=== PATIENT | female | born 1945 | race Hispanic/Latino ===

== ENCOUNTER 2018-01-15 07:12 | Emergency (ER) | payer MEDICARE ==
[2018-01-15] MEDS ORDERED: CODEINE 30MG/APAP 300MG TAB ONE (08:19)
--- NOTE | 2018-01-15 09:20 | EDPHYS ---
Physician Documentation [facility] Name: Patricia Caldera Age: 72 yrs Sex: Female : 1945 Arrival Date: 01/15/2018 Time: 07:19 Bed 12 Private MD: ED Physician Jason Silva HPI: 01/15 08:00 This 72 yrs old Female presents to ER via Ambulatory with complaints of Knee pm1 Pain. 08:00 The patient presents with pain, that is acute. The complaints affect the lateral aspect pm1 of left knee. Context: The problem was sustained at home, resulted from Son got dizzy with standing up and accidentally fell into his mother left knee, the patient can partially bear weight, the patient is able to ambulate, Problem is a result from a previous injury: No. Onset: The symptoms/episode began/occurred last night. Modifying factors: The symptoms are alleviated by remaining still, the symptoms are aggravated by weight bearing. Associated signs and symptoms: Pertinent negatives calf tenderness, fever, numbness, swelling, tingling, warmth. Treatment prior to arrival includes: no previous treatment. Severity of symptoms: in the emergency department the symptoms are unchanged. The patient has not experienced similar symptoms in the past. Patient with full range of motion of left knee without pain. Historical: - Allergies: 07:30 No Known Allergies; hb - Home Meds: 07:30 None [Active]; hb - PMHx: 07:30 Unable to obtain; hb - PSHx: 07:30 Hysterectomy; Bladder Sling; hb - Immunization history:: Adult Immunizations up to date. - Social history:: Smoking status: Patient/guardian denies using tobacco. - Ebola Screening: : No symptoms or risks identified at this time. ROS: 08:00 Constitutional: Negative for fever, chills, and weight loss, Eyes: Negative for injury, pm1 pain, redness, and discharge, ENT: Negative for injury, pain, and discharge, Neck: Negative for injury, pain, and swelling, Cardiovascular: Negative for chest pain, palpitations, and edema, Respiratory: Negative for shortness of breath, cough, wheezing, and pleuritic chest pain, Abdomen/GI: Negative for abdominal pain, nausea, vomiting, diarrhea, and constipation, Back: Negative for injury and pain. 08:00 Skin: Negative for injury, rash, and discoloration, Neuro: Negative for headache, weakness, numbness, tingling, and seizure. 08:00 MS/extremity: Positive for pain, of the lateral aspect of left knee, Negative for decreased range of motion, deformity, swelling. Exam: 08:00 Constitutional: This is a well developed, well nourished patient who is awake, alert, pm1 and in no acute distress. Head/Face: Normocephalic, atraumatic. Eyes: Pupils equal round and reactive to light, extra-ocular motions intact. Lids and lashes normal. Conjunctiva and sclera are non-icteric and not injected. Cornea within normal limits. Periorbital areas with no swelling, redness, or edema. ENT: Nares patent. No nasal discharge, no septal abnormalities noted. Tympanic membranes are normal and external auditory canals are clear. Oropharynx with no redness, swelling, or masses, exudates, or evidence of obstruction, uvula midline. Mucous membranes moist. Neck: Trachea midline, no thyromegaly or masses palpated, and no cervical lymphadenopathy. Supple, full range of motion without nuchal rigidity, or vertebral point tenderness. No Meningismus. Chest/axilla: Normal chest wall appearance and motion. Nontender with no deformity. No lesions are appreciated. Cardiovascular: Regular rate and rhythm with a normal S1 and S2. No gallops, murmurs, or rubs. Normal PMI, no JVD. No pulse deficits. Respiratory: Lungs have equal breath sounds bilaterally, clear to auscultation and percussion. No rales, rhonchi or wheezes noted. No increased work of breathing, no retractions or nasal flaring. Abdomen/GI: Soft, non-tender, with normal bowel sounds. No distension or tympany. No guarding or rebound. No evidence of tenderness throughout. Back: No spinal tenderness. No costovertebral tenderness. Full range of motion. Skin: Warm, dry with normal turgor. Normal color with no rashes, no lesions, and no evidence of cellulitis. 08:00 Musculoskeletal/extremity: Extremities: all appear grossly normal, with no appreciated pain with palpation, Left knee negative drawer test, Bhupendra, Apley compression test, valgus and varus stress, ROM: full active range of motion, in the left knee, full passive range of motion, in the left knee. 08:00 Neuro: Orientation: is normal, Motor: is normal, moves all fours, Sensation: is normal, no obvious gross deficits. Vital Signs: 07:31 BP 137 / 78; Pulse 69; Resp 16; Temp 98.1; Pulse Ox 100% on R/A; Pain 8/10; hb MDM: 07:30 Patient medically screened. pm1 09:18 Data reviewed: vital signs. Data interpreted: Pulse oximetry: on room air is 100 %. pm1 Interpretation: normal. Counseling: I had a detailed discussion with the patient and/or guardian regarding: the historical points, exam findings, and any diagnostic results supporting the discharge/admit diagnosis, radiology results, the need for outpatient follow up, for definitive care, a orthopedic surgeon, to return to the emergency department if symptoms worsen or persist or if there are any questions or concerns that arise at home. 01/15 07:32 Order name: Knee Left 3 View XRAY; Complete Time: 09:42 pm1 01/15 09:24 Order name: Jerald wrap-joint; Complete Time: 09:41 pm1 Administered Medications: 08:21 Drug: Tylenol #3 (300 mg-30 mg) 1 tablet Route: PO; hb Disposition: 10:27 Co-signature as Attending Physician, Jason Silva MD. rn Disposition: 01/15/18 09:19 Discharged to Home. Impression: Pain in left knee. - Condition is Stable. - Discharge Instructions: Elastic Bandage and RICE, Knee Pain. - Prescriptions for Tylenol- Codeine #3 300-30 mg Oral Tablet - take 1 tablet by ORAL route every 8 hours As needed; 20 tablet. - Medication Reconciliation Form, Thank You Letter, Prescription Opioid Use form. - Follow up: Emergency Department; When: As needed; Reason: Worsening of condition. Follow up: Augustin Woodall MD; When: 2 - 3 days; Reason: Recheck today's complaints, Continuance of care, Re-evaluation by your physician. - Problem is new. - Symptoms have improved. Signatures: Dispatcher [employer] EDMS Jason Silva MD MD rn Marinas, Patrick, KAREN [employer] PREPARATION WORKER pm1 Quyen Meredith, RN RN hb Corrections: (The following items were deleted from the chart) 09:45 09:19 01/15/2018 09:19 Discharged to Home. Impression: Pain in left knee. Condition is hb Stable. Forms are Medication Reconciliation Form, Thank You Letter, Antibiotic Education, Prescription Opioid Use. Follow up: Emergency Department; When: As needed; Reason: Worsening of condition. Follow up: Dr. Augustin Woodall; When: 2 - 3 days; Reason: Recheck today's complaints, Continuance of care, Re-evaluation by your physician. Problem is new. Symptoms have improved. pm1
--- NOTE | 2018-01-15 09:20 | ER ---
Nurse's Notes [facility] Name: Patricia Caldera Age: 72 yrs Sex: Female : 1945 Arrival Date: 01/15/2018 Time: 07:19 Bed 12 Private MD: Diagnosis: Pain in left knee Presentation: 01/15 07:29 Presenting complaint: Left knee pain 8/10 after mechanical fall from standing last hb night. Transition of care: patient was not received from another setting of care. Onset of symptoms was January 14, 2018. Risk Assessment: Do you want to hurt yourself or someone else? Patient reports no desire to harm self or others. Care prior to arrival: None. 07:29 Method Of Arrival: Ambulatory hb 07:29 Acuity: JONATHAN 4 hb 07:45 Initial Sepsis Screen: Does the patient meet any 2 criteria? No. Patient's initial hb sepsis screen is negative. Does the patient have a suspected source of infection? No. Patient's initial sepsis screen is negative. Historical: - Allergies: 07:30 No Known Allergies; hb - Home Meds: 07:30 None [Active]; hb - PMHx: 07:30 Unable to obtain; hb - PSHx: 07:30 Hysterectomy; Bladder Sling; hb - Immunization history:: Adult Immunizations up to date. - Social history:: Smoking status: Patient/guardian denies using tobacco. - Ebola Screening: : No symptoms or risks identified at this time. Screenin:00 Abuse screen: Denies threats or abuse. Denies injuries from another. Nutritional hb screening: No deficits noted. Tuberculosis screening: No symptoms or risk factors identified. Fall Risk None identified. Assessment: 08:00 General: Appears in no apparent distress. uncomfortable, Behavior is calm, cooperative. hb Pain: Pain currently is 8 out of 10 on a pain scale. Neuro: Level of Consciousness is awake, alert, obeys commands, Oriented to person, place, time, situation. Cardiovascular: Capillary refill < 3 seconds Patient's skin is warm and dry. Respiratory: Airway is patent Trachea midline Respiratory effort is even, unlabored, Respiratory pattern is regular, symmetrical. GI: No signs and/or symptoms were reported involving the gastrointestinal system. : No signs and/or symptoms were reported regarding the genitourinary system. EENT: No signs and/or symptoms were reported regarding the EENT system. Derm: Skin is pink, warm \T\ dry. Musculoskeletal: Reports pain in left knee. 09:00 Reassessment: Patient appears in no apparent distress at this time. No changes from hb previously documented assessment. Patient and/or family updated on plan of care and expected duration. Pain level reassessed. Patient is alert, oriented x 3, equal unlabored respirations, skin warm/dry/pink. Vital Signs: 07:31 BP 137 / 78; Pulse 69; Resp 16; Temp 98.1; Pulse Ox 100% on R/A; Pain 8/10; hb ED Course: 07:19 Patient arrived in ED. as 07:28 Quyen Meredith, RN is Primary Nurse. hb 07:30 Triage completed. hb 07:30 Edu Zacarias NP is PHCP. pm1 07:30 Jason Silva MD is Attending Physician. pm1 07:30 Arm band placed on right wrist. hb 08:00 Patient has correct armband on for positive identification. Bed in low position. Call hb light in reach. Side rails up X 1. 08:48 Knee Left 3 View XRAY In Process Unspecified. EDMS 09:18 Augustin Woodall MD is Referral Physician. pm1 09:30 No provider procedures requiring assistance completed. Patient did not have IV access hb during this emergency room visit. Administered Medications: 08:21 Drug: Tylenol #3 (300 mg-30 mg) 1 tablet Route: PO; hb Outcome: 09:19 Discharge ordered by . pm1 09:40 Discharged to home ambulatory, with significant other. hb 09:40 Condition: stable 09:40 Discharge instructions given to patient, Instructed on discharge instructions, follow up and referral plans. medication usage, Demonstrated understanding of instructions, follow-up care, medications, Prescriptions given X 1. 09:45 Patient left the ED. hb Signatures: Dispatcher [employer] EDMS Makeda Bautista as Edu Zacarias NP [employer]FFL[employer] REPAIRER pm1 Quyen Meredith, RN RN hb
--- NOTE | 2018-01-15 09:39 | RAD REPORT ---
EXAM DESCRIPTION: RAD - Knee Left 3 View - 01/15/2018 8:48 am CLINICAL HISTORY: Left knee pain status post injury FINDINGS: No fracture or dislocation is seen. Bones appear osteoporotic
[2018-01-15 09:52] VITALS: BP 137/78; TEMP 98.1; O2SAT 100
== END 2018-01-15 09:45 | disposition home or self-care (01) ==
LOC: ER 07:12
DX: M25.562 Pain in left knee (principal); W03.XXXA Other fall on same level due to collision with another person, initial encounter; Y93.9 Activity, unspecified; Y92.019 Unspecified place in single-family (private) house as the place of occurrence of the external cause
CPT/HCPCS: 99283

== ENCOUNTER 2018-08-04 10:16 | Emergency (ER) | payer OTHER ==
--- OUTSIDE RECORDS SUMMARY | 2018-08-04 10:21 | XMS REPORT | Summary of Care ---
:1945 Author Organization [facility] Outpatient Imaging [place] Address [facility] [place], [place] [address]- Encounter HQ Encntr_alias(FIN) [id number] Date(s): 01/28/17 - 01/28/17 [facility] Outpatient Imaging [address], [address] [place] [address]- [phone] Discharge Disposition: Home or Self Care Attending Physician: Delicia Stark MD Vital Signs No data available for this section Problem List No data available for this section Allergies, Adverse Reactions, Alerts Substance Reaction Severity Status NKDA Active Medications No data available for this section Results No data available for this section Immunizations No data available for this section Procedures Procedure Date Related Diagnosis Body Site Repair of cystocele and rectocele Total hysterectomy Social History Social History Type Response Alcohol Never Smoking Status Never smoker; Exposure to Tobacco Smoke None; Cigarette Smoking Last 365 Days No; Reg Smoking Cessation Counseling No Assessment and Plan No data available for this section
--- OUTSIDE RECORDS SUMMARY | 2018-08-04 10:21 | XMS REPORT | Continuity of Care Document ---
:1945 Author Organization Interface Problems Problem Status Onset Date Classification Date Comments Source Reported Medications Medication Details Route Status Patient Ordering Order Source Instructions Provider Date Allergies, Adverse Reactions, Alerts Substance Category Reaction Severity Reaction Status Date Comments Source type Reported Immunizations Immunization Date Given Site Status Last Updated Comments Source Results Order Results Value Reference Date Interpretation Comments Source Name Range Vital Signs Vital Sign Value Date Comments Source Encounters Location Location Encounter Encounter Reason Attending ADM DC Status Source Details Type Number For Provider Date Date Visit [facility] Outpt Diag [id number] Delicia 01/28 01/29 [facility] [place] /[facility] [id number] Jaqaun 07/[address] [facility] /2018 [facility] Procedures Procedure Code Date Perfomer Comments Source Repair of [id number] [place]IR[place] cystocele and [place] rectocele Total hysterectomy [id number] [facility] [place]
--- NOTE | 2018-08-04 13:21 | ER ---
Nurse's Notes [facility] Name: Patricia Caldera Age: 72 yrs Sex: Female : 1945 Arrival Date: 08/04/2018 Time: 10:17 Bed Waiting Private MD: Diagnosis: Presentation: 08/04 10:24 Presenting complaint: Patient states: "My right hip hurts so bad I can't walk it aj1 started all of the sudden" Reports that the pain started this morning and radiates down her leg. Patient denies injury to right hip or right leg. Transition of care: patient was not received from another setting of care. Onset of symptoms was August 04, 2018 at 07:00. Risk Assessment: Do you want to hurt yourself or someone else? Patient reports no desire to harm self or others. Initial Sepsis Screen: Does the patient meet any 2 criteria? No. Patient's initial sepsis screen is negative. Does the patient have a suspected source of infection? No. Patient's initial sepsis screen is negative. Care prior to arrival: None. 10:24 Method Of Arrival: Wheelchair aj1 10:24 Acuity: JONATHAN 4 aj1 Triage Assessment: 10:25 General: Appears in no apparent distress. uncomfortable, Behavior is calm, cooperative, aj1 appropriate for age. Pain: Complains of pain in right hip Pain radiates to right leg Pain currently is 10 out of 10 on a pain scale. Neuro: Level of Consciousness is awake, alert, obeys commands. Cardiovascular: Patient's skin is warm and dry. Respiratory: Airway is patent Respiratory effort is even, unlabored, Respiratory pattern is regular, symmetrical. Historical: - Allergies: 10:25 No Known Allergies; aj1 - Home Meds: 10:25 None [Active]; aj1 - PMHx: 10:25 None; aj1 - PSHx: 10:25 Carpal Tunnel Repair; aj1 - Immunization history:: Flu vaccine is not up to date. - Social history:: Smoking status: Patient/guardian denies using tobacco. - Ebola Screening: : Patient denies travel to an Ebola-affected area in the 21 days before illness onset. Assessment: 13:18 Reassessment: ER registration personnel states that patient left due to wait time. Vital Signs: 10:25 BP 145 / 81; Pulse 72; Resp 18; Temp 97.6(TE); Pulse Ox 99% on R/A; Weight 64.41 kg; aj1 Height 5 ft. 2 in. (157.48 cm) (R); Pain 10/10; 10:25 Body Mass Index 25.97 (64.41 kg, 157.48 cm) aj1 ED Course: 10:17 Patient arrived in ED. as 10:25 Triage completed. aj1 10:25 Arm band placed on Patient placed in waiting room, Patient notified of wait time. aj1 12:47 Patient's name was called from ER lobby. No response. aj1 13:19 No provider procedures requiring assistance completed. Patient did not have IV access ss during this emergency room visit. Administered Medications: No medications were administered Outcome: 13:19 Eloped from waiting room. ss 13:19 unknown 13:20 Patient left the ED. ss Signatures: Celia Fam, RN RN aj1 Makeda Bautista Shelby, RN RN ss
[2018-08-04 13:48] VITALS: BP 145/81; TEMP 97.6; O2SAT 99
== END 2018-08-04 13:20 | disposition left against medical advice (07) ==
LOC: ER 10:16
DX: M25.551 Pain in right hip (principal); Z53.21 Procedure and treatment not carried out due to patient leaving prior to being seen by health care provider
CPT/HCPCS: 99281

== ENCOUNTER 2018-08-13 06:49 | Emergency (ER) | payer OTHER ==
--- OUTSIDE RECORDS SUMMARY | 2018-08-13 06:51 | XMS REPORT | Continuity of Care Document ---
:1945 Author Organization Interface Problems Problem Status Onset Date Classification Date Comments Source Reported Medications Medication Details Route Status Patient Ordering Order Source Instructions Provider Date Allergies, Adverse Reactions, Alerts Substance Category Reaction Severity Reaction Status Date Comments Source type Reported No Known Assertion Drug Mischer Medication allergy Neuro Allergies Immunizations Immunization Date Given Site Status Last Updated Comments Source Results Order Results Value Reference Date Interpretation Comments Source Name Range Vital Signs Vital Sign Value Date Comments Source Encounters Location Location Encounter Encounter Reason Attending ADM DC Status Source Details Type Number For Provider Date Date Visit [facility] Outpt Diag [id number] Delicia 01/28 01/29 [facility] [place] [facility] [id number] [facility]qu[facility] 07[id number] [place] Records Procedures Procedure Code Date Perfomer Comments Source Repair of [id number] [facility] cystocele and [place] rectocele Total hysterectomy [id number] [facility] [place]air [place] [id number] [facility] [place]sto[place] and rectocele Total hysterectomy [id number] [facility]
[2018-08-13] MEDS ORDERED: HYDROCODONE/APAP 5/325 MG TAB ONE (07:49)
--- NOTE | 2018-08-13 07:49 | EDPHYS ---
Physician Documentation [facility] Name: Patricia Caldera Age: 72 yrs Sex: Female : 1945 Arrival Date: 08/13/2018 Time: 06:52 Bed 13 Private MD: ED Physician Vu Domingo HPI: 08/13 07:44 This 72 yrs old Female presents to ER via Wheelchair with complaints of Pain kb from hip down. 07:44 The patient presents with pain that is acute, with no known mechanism of injury. The kb symptoms are located in the right low back. Onset: The symptoms/episode began/occurred 10 day(s) ago. The pain radiates to the right leg. Associated signs and symptoms: The patient has no apparent associated signs or symptoms. The problem was sustained without known cause. Modifying factors: The patient symptoms are alleviated by nothing, the patient symptoms are aggravated by any movement. Severity of symptoms: At their worst the symptoms were moderate, in the emergency department the symptoms are unchanged. The patient has not experienced similar symptoms in the past. Pt reports she started having pain to right buttock/hip that radiates down right leg 10 days ago. Was seen by Dr Martin, given tramadol and trizanadine, and had a hip x-ray done. States the medications aren't working.. Historical: - Allergies: 07:07 No Known Allergies; rb1 - Home Meds: 07:07 tramadol 50 mg Oral tab 1 tab Twice a day [Active]; tizanidine 4 mg oral cap 1 cap rb1 Twice a day [Active]; - PMHx: 07:07 None; rb1 - PSHx: 07:07 Carpal Tunnel Repair; rb1 - Immunization history:: Adult Immunizations up to date. - Social history:: Smoking status: Patient/guardian denies using tobacco. - Ebola Screening: : Patient negative for fever greater than or equal to 101.5 degrees Fahrenheit, and additional compatible Ebola Virus Disease symptoms. ROS: 07:41 Constitutional: Negative for fever, chills, and weight loss, Cardiovascular: Negative kb for chest pain, palpitations, and edema, Respiratory: Negative for shortness of breath, cough, wheezing, and pleuritic chest pain, Abdomen/GI: Negative for abdominal pain, nausea, vomiting, diarrhea, and constipation, MS/Extremity: Negative for injury and deformity, Skin: Negative for injury, rash, and discoloration, Neuro: Negative for headache, weakness, numbness, tingling, and seizure. 07:41 Back: Positive for pain at rest, pain with movement, radiated pain, of the right low back, Negative for injury or acute deformity, acute changes. Exam: 07:41 Constitutional: This is a well developed, well nourished patient who is awake, alert, kb and in no acute distress. Head/Face: Normocephalic, atraumatic. Chest/axilla: Normal chest wall appearance and motion. Nontender with no deformity. No lesions are appreciated. Cardiovascular: Regular rate and rhythm with a normal S1 and S2. No gallops, murmurs, or rubs. Normal PMI, no JVD. No pulse deficits. Respiratory: Lungs have equal breath sounds bilaterally, clear to auscultation and percussion. No rales, rhonchi or wheezes noted. No increased work of breathing, no retractions or nasal flaring. Abdomen/GI: Soft, non-tender, with normal bowel sounds. No distension or tympany. No guarding or rebound. No evidence of tenderness throughout. Skin: Warm, dry with normal turgor. Normal color with no rashes, no lesions, and no evidence of cellulitis. Neuro: Awake and alert, GCS 15, oriented to person, place, time, and situation. Cranial nerves II-XII grossly intact. Motor strength 5/5 in all extremities. Sensory grossly intact. Cerebellar exam normal. Normal gait. 07:41 Back: pain, that is moderate, of the right low back, ROM is normal, normal spinal alignment noted. Vital Signs: 07:07 BP 151 / 76; Pulse 95; Resp 17; Temp 97.8(O); Pulse Ox 98% on R/A; Weight 64.41 kg (R); rb1 Height 5 ft. 2 in. (157.48 cm) (R); Pain 9/10; 08:05 BP 145 / 82; Pulse 86; Resp 17; Temp 98.2(O); Pulse Ox 97% on R/A; Pain 8/10; rb1 07:07 Body Mass Index 25.97 (64.41 kg, 157.48 cm) rb1 MDM: 07:10 Patient medically screened. kb 07:41 Data reviewed: vital signs, nurses notes. Data reviewed: radiologic studies, plain kb films, plain films of hip done last week reviewed. Normal findings. Data interpreted: Pulse oximetry: on room air is 98 %. Interpretation: normal. Counseling: I had a detailed discussion with the patient and/or guardian regarding: the historical points, exam findings, and any diagnostic results supporting the discharge/admit diagnosis, the need for outpatient follow up, a family practitioner, to return to the emergency department if symptoms worsen or persist or if there are any questions or concerns that arise at home. Administered Medications: 07:38 Drug: [place] 5 mg-325 mg 1 tabs Route: PO; rb1 08:05 Follow up: Response: No adverse reaction; Pain is decreased; pain 11/19 rb1 Disposition: 22:02 Co-signature as Attending Physician, Vu Domingo MD Available for consultation at ps1 all times. . Disposition: 08/13/18 07:48 Discharged to Home. Impression: Sciatica, right side. - Condition is Stable. - Discharge Instructions: Sciatica, [id number], Back Exercises, [id number]. - Prescriptions for Neurontin 300 mg Oral Capsule - take 1 capsule by ORAL route 1-2 times daily As needed; 20 capsule. Prednisone 20 mg Oral Tablet - take 1 tablet by ORAL route once daily for 5 days; 5 tablet. - Medication Reconciliation Form, Thank You Letter, Antibiotic Education, Prescription Opioid Use form. - Follow up: Emergency Department; When: As needed; Reason: Worsening of condition. Follow up: Private Physician; When: 2 - 3 days; Reason: Recheck today's complaints, Continuance of care, Re-evaluation by your physician. Signatures: Mildred Lay, KJ-C SOCIOCULTURAL ANTHROPOLOGY PROFESSOR-Kylie Meraz, RN RN rb1 Vu Domingo MD MD ps1 Corrections: (The following items were deleted from the chart) 08:09 07:48 08/13/2018 07:48 Discharged to Home. Impression: Sciatica, right side. Condition rb1 is Stable. Discharge Instructions: Sciatica, [id number], Back Exercises, [id number]. Prescriptions for Neurontin 300 mg Oral Capsule - take 1 capsule by ORAL route 1-2 times daily As needed; 20 capsule, Prednisone 20 mg Oral Tablet - take 1 tablet by ORAL route once daily for 5 days; 5 tablet. and Forms are Medication Reconciliation Form, Thank You Letter, Antibiotic Education, Prescription Opioid Use. Follow up: Emergency Department; When: As needed; Reason: Worsening of condition. Follow up: Private Physician; When: 2 - 3 days; Reason: Recheck today's complaints, Continuance of care, Re-evaluation by your physician. kb
--- NOTE | 2018-08-13 07:49 | ER ---
Nurse's Notes [facility] Name: Patricia Caldera Age: 72 yrs Sex: Female : 1945 Arrival Date: 08/13/2018 Time: 06:52 Bed 13 Private MD: Diagnosis: Sciatica, right side Presentation: 08/13 07:07 Presenting complaint: Patient states: C/o right hip pain x [address] Martin rb1 for pain. Had X-rays on Wednesday but has not received results yet. 07:07 Transition of care: patient was not received from another setting of care. Onset of rb1 symptoms is unknown. Risk Assessment: Do you want to hurt yourself or someone else? Patient reports no desire to harm self or others. Initial Sepsis Screen: Does the patient meet any 2 criteria? No. Patient's initial sepsis screen is negative. Does the patient have a suspected source of infection? No. Patient's initial sepsis screen is negative. Care prior to arrival: Medication(s) given: Tramadol 50 mg PO and Tizanidine 4 mg PO. 07:07 Method Of Arrival: [facility] 07:07 Acuity: JONATHAN 3 rb1 Triage Assessment: 07:07 General: Appears uncomfortable, Behavior is calm, cooperative. Pain: Complains of pain rb1 in right hip Pain currently is 9 out of 10 on a pain scale. Pain began x 2 weeks. Neuro: Level of Consciousness is awake, alert, obeys commands, Oriented to person, place, time, situation. Cardiovascular: Capillary refill < 3 seconds is brisk in bilateral fingers. Respiratory: Airway is patent Respiratory effort is even, unlabored, Respiratory pattern is regular, symmetrical. GI: Reports diarrhea. : No signs and/or symptoms were reported regarding the genitourinary system. Derm: Skin is dry, Skin is normal, Skin temperature is warm. Musculoskeletal: Range of motion: intact in all extremities. Historical: - Allergies: 07:07 No Known Allergies; rb1 - Home Meds: 07:07 tramadol 50 mg Oral tab 1 tab Twice a day [Active]; tizanidine 4 mg oral cap 1 cap rb1 Twice a day [Active]; - PMHx: 07:07 None; rb1 - PSHx: 07:07 Carpal Tunnel Repair; rb1 - Immunization history:: Adult Immunizations up to date. - Social history:: Smoking status: Patient/guardian denies using tobacco. - Ebola Screening: : Patient negative for fever greater than or equal to 101.5 degrees Fahrenheit, and additional compatible Ebola Virus Disease symptoms. Screenin:07 Abuse screen: Denies threats or abuse. Nutritional screening: No deficits noted. rb1 Tuberculosis screening: No symptoms or risk factors identified. Fall Risk None identified. Assessment: 07:07 General: See triage assessment. rb1 08:05 Reassessment: Patient appears in no apparent distress at this time. Patient and/or rb1 family updated on plan of care and expected duration. Pain level reassessed. Patient is alert, oriented x 3, equal unlabored respirations, skin warm/dry/pink. Vital Signs: 07:07 BP 151 / 76; Pulse 95; Resp 17; Temp 97.8(O); Pulse Ox 98% on R/A; Weight 64.41 kg (R); rb1 Height 5 ft. 2 in. (157.48 cm) (R); Pain 9/10; 08:05 BP 145 / 82; Pulse 86; Resp 17; Temp 98.2(O); Pulse Ox 97% on R/A; Pain 8/10; rb1 07:07 Body Mass Index 25.97 (64.41 kg, 157.48 cm) rb1 ED Course: 06:52 Patient arrived in ED. es 07:07 Patient has correct armband on for positive identification. Bed in low position. Call rb1 light in reach. Side rails up X 1. Pulse ox on. NIBP on. Warm blanket given. 07:07 Arm band placed on right wrist. rb1 07:09 Mildred Lay FNP-C is PHCP. kb 07:10 Vu Domingo MD is Attending Physician. kb 07:14 Kylie Kelley, RN is Primary Nurse. rb1 07:24 Triage completed. rb1 08:09 No provider procedures requiring assistance completed. Patient did not have IV access rb1 during this emergency room visit. Administered Medications: 07:38 Drug: [place] 5 mg-325 mg 1 tabs Route: PO; rb1 08:05 Follow up: Response: No adverse reaction; Pain is decreased; pain 8/10 rb1 Intake: Outcome: 07:48 Discharge ordered by . kb 08:09 Patient left the ED. rb1 08:09 Discharged to home via wheelchair. rb1 08: Condition: stable 08:09 Discharge instructions given to patient, Instructed on discharge instructions, follow up and referral plans. medication usage, Demonstrated understanding of instructions, follow-up care, medications, Prescriptions given X 2. Signatures: Mildred Lay, PUBLIC SPEAKER-C PUBLIC SPEAKER-Rocío Saba Rebecca, RN RN rb1
[2018-08-13 08:35] VITALS: BP 151/76; TEMP 97.8; O2SAT 98
== END 2018-08-13 08:09 | disposition home or self-care (01) ==
LOC: ER 06:49
DX: M54.31 Sciatica, right side (principal)
CPT/HCPCS: 99283

== ENCOUNTER 2021-12-26 12:17 | Emergency (ER) | payer OTHER ==
[2021-12-26] MEDS ORDERED: ONDANSETRON 4 MG/2 ML VIAL ONE (13:43)
[2021-12-26] MEDS ORDERED: FAMOTIDINE 20 MG/2 ML VIAL IV ONE (13:43)
[2021-12-26] MEDS ORDERED: MORPHINE 2 MG/ML SYR ONE (13:43)
--- NOTE | 2021-12-26 13:53 | RAD REPORT ---
EXAM DESCRIPTION: US - Abdomen Exam Limited - 12/26/2021 1:45 pm CLINICAL HISTORY: EPIGASTRIC PAIN COMPARISON: Abdomen Exam Limited dated 02/10/2017 FINDINGS: The gallbladder demonstrates no clear evidence of gallstones. Small echogenic foci along t he nondependent portions of the gallbladder wall could represent adenomyomatosis, less likely polyps. No pericholecystic fluid or gallbladder wall thickening. The common bile duct is normal measuring 3 mm. The liver demonstrates no findings of intrahepatic biliary dilatation. IMPRESSION: No sonographic evidence of acute cholecystitis. Probable adenomyomatosis without clear e vidence of cholelithiasis. .
[2021-12-26 14:18] LABS: Albumin 3.5 g/dL (3.4-5.0); Bilirubin Total 0.6 mg/dL (0.2-1.0); Potassium 4.4 mmol/L (3.5-5.1); Protein, Total 7.3 g/dL (6.4-8.2)
[2021-12-26 14:20] LABS: Hematocrit 37.5 % (36.0-45.0); Lymphocytes % 34.7 % (15.3-44.8); MCV 99.8 fL (80-100); MPV 9.5 fL (7.6-11.3); RBC Red Blood Cell Count 3.76 M/uL (3.86-4.86)
--- NOTE | 2021-12-26 15:11 | RAD REPORT ---
EXAM DESCRIPTION: CTAbdomen Pelvis W Contrast - 12/26/2021 2:47 pm CLINICAL HISTORY: abdominal pain COMPARISON: CT ABD PELVIS W CONTRAST dated 10/10/2013 TECHNIQUE: CT of the abdomen and pelvis was performed. All CT scans are performed using dose optimization technique as appropriate and may include automated exposure control or mA/KV adjustment according to patient size. FINDINGS: Lower chest: No acute abnormality. Liver: No acute abnormality or suspicious lesions. Biliary: No biliary ductal dilatation. Stomach: No significant focal abnormality. Duodenum: No significant focal abnormality. Pancreas: No significant abnormality. Spleen: No significant abnormality. Adrenal: No suspicious lesions. Kidney/ureter: No hydronephrosis. Punctate stone in the left kidney. Retroperitoneum: No retroperitoneal adenopathy. Vascular: No aneurysm. Bowel: Formed stool in the distal small bowel suggests slow transit. No bowel obstruction is identifi ed. Scattered loops of fluid distended small bowel. No transition point.. No appendix identified. No secondary signs of acute appendicitis. Peritoneum: No ascites or free air. Bladder: Grossly unremarkable. Reproductive: No adnexal masses. Hysterectomy Bones: No acute fracture. Other: n/a IMPRESSION: No acute intra-abdominal or pelvic finding. Incidental findings as noted above.
[2021-12-26 15:25] LABS: Urine Blood Negative (Negative); Urine Glucose Negative (Negative); Urine Protein Negative (Negative); Urine Specific Gravity 1.015 (1.005-1.030); Urine pH 8.5 (5.0-7.0)
--- NOTE | 2021-12-26 16:04 | EDPHYS ---
Physician Documentation [facility] Name: Patricia Caldera Age: 76 yrs Sex: Female : 1945 Arrival Date: 12/26/2021 Time: 12:21 Bed 26 Private MD: Isabel Yeung ED Physician Kiel Bains HPI: 12/26 16:01 This 76 yrs old Female presents to ER via Ambulatory with complaints of jmm Abdominal Pain. 16:01 The patient presents with abdominal pain. Onset: The symptoms/episode began/occurred jmm gradually. The symptoms do not radiate. Associated signs and symptoms: Pertinent positives: nausea. The symptoms are described as achy, sharp. Modifying factors: The symptoms are alleviated by nothing, the symptoms are aggravated by nothing. It is unknown whether or not the patient has had similar symptoms in the past. Historical: - Allergies: 12:40 No Known Allergies; kr3 - Home Meds: 15:33 tizanidine 4 mg Oral cap 1 cap twice a day [Active]; tramadol 50 mg Oral tab 1 tab hb twice a day [Active]; - PMHx: 12:40 Diverticulitis; Acid reflux; kr3 - PSHx: 12:40 hysterectomy; Appendectomy; kr3 - Immunization history:: Adult Immunizations not up to date. - Social history:: Smoking status: Patient denies any tobacco usage or history of. ROS: 16:01 Constitutional: Negative for fever, chills, and weight loss, Cardiovascular: Negative jmm for chest pain, palpitations, and edema, Respiratory: Negative for shortness of breath, cough, wheezing, and pleuritic chest pain. 16:01 Abdomen/GI: Positive for abdominal pain. 16:01 All other systems are negative. Exam: 16:01 Constitutional: This is a well developed, well nourished patient who is awake, alert, jmm and in no acute distress. Head/Face: atraumatic. Eyes: EOMI, no conjunctival erythema appreciated ENT: Moist Mucus Membranes Neck: Trachea midline, Supple Chest/axilla: Normal chest wall appearance and motion. Cardiovascular: Regular rate and rhythm. No edema appreciated Respiratory: Normal respirations, no respiratory distress appreciated Back: Normal ROM 16:01 Skin: General appearance color normal MS/ Extremity: Moves all extremities, no obvious deformities appreciated, no edema noted to the lower extremities Neuro: Awake and alert Psych: Behavior is normal, Mood is normal, Patient is cooperative and pleasant 16:01 Abdomen/GI: Inspection: abdomen appears normal, Bowel sounds: normal, Palpation: soft, moderate abdominal tenderness, in the epigastric area. Vital Signs: 12:37 BP 124 / 81; Pulse 91; Resp 16; Temp 98.8; Pulse Ox 99% on R/A; Weight 68.04 kg; Height kr3 5 ft. 2 in. (157.48 cm); Pain 6/10; 14:30 BP 122 / 78; Pulse 84; Resp 16; Pulse Ox 99% ; Pain 2/10; hb 12:37 Body Mass Index 27.44 (68.04 kg, 157.48 cm) kr3 MDM: 13:07 Patient medically screened. [facility] 16:02 Data reviewed: vital signs, nurses notes. Counseling: I had a detailed discussion with [facility] the patient and/or guardian regarding: the historical points, exam findings, and any diagnostic results supporting the discharge/admit diagnosis, lab results, radiology results, the need for outpatient follow up, to return to the emergency department if symptoms worsen or persist or if there are any questions or concerns that arise at home. 12/26 13:10 Order name: CBC with Diff; Complete Time: 14:29 [facility] 12/26 13:10 Order name: CMP; Complete Time: 14:20 [facility] 12/26 13:10 Order name: Lipase; Complete Time: 14:20 [facility] 12/26 13:12 Order name: US Abdomen Limited; Complete Time: 13:54 [facility] 12/26 13:12 Order name: CT Abd/Pelvis - IV Contrast Only; Complete Time: 15:12 [facility] 12/26 15:25 Order name: Urine Dipstick-Ancillary; Complete Time: 15:37 [facility] 12/26 13:10 Order name: IV Saline Lock; Complete Time: 13:54 [facility] 12/26 13:10 Order name: Labs collected and sent; Complete Time: 13:54 [facility] 12/26 13:10 Order name: Urine Dipstick-Ancillary (obtain specimen); Complete Time: 15:30 [facility] Administered Medications: 13:54 Drug: Pepcid (famotidine) 20 mg Route: IVP; Site: right antecubital; hb 13:54 Drug: Zofran (Ondansetron) 4 mg Route: IVP; Site: right antecubital; hb 13:54 Drug: morphine 2 mg Route: IVP; Infused Over: 4 mins; Site: right antecubital; hb Disposition: 18:01 Co-signature as Attending Physician, Kiel Bains MD I agree with the assessment and kdr plan of care. Disposition Summary: 12/26/21 16:03 Discharge Ordered Location: Home [facility] Condition: Stable [facility] Diagnosis - Epigastric Abdominal Pain [facility] Followup: [facility] - With: Fredis Otero MD - When: 2 - 3 days - Reason: Recheck today's complaints, Continuance of care, Re-evaluation by your physician Discharge Instructions: - Discharge Summary Sheet [facility] - Abdominal Pain, Adult [facility] Forms: - Medication Reconciliation Form [facility] - Thank You Letter [facility] - Antibiotic Education [facility] - Prescription Opioid Use [facility] Prescriptions: - Pepcid 20 mg Oral Tablet - take 1 tablet by ORAL route every 12 hours for 10 days; 20 tablet; Refills: 0, [facility] Product Selection Permitted - dicyclomine 20 mg Oral Tablet - take 1 tablet by ORAL route 3 times per day; 30 tablet; Refills: 0, Product [facility] Selection Permitted Signatures: Dispatcher [employer] EDGA Kiel Bains MD MD kdr Mickail, Joel, PA PA Quyen Peterson, RN RN Marla Sewell RN RN kr3
--- NOTE | 2021-12-26 16:04 | ER ---
Nurse's Notes [facility] Name: Patricia Caldera Age: 76 yrs Sex: Female : 1945 Arrival Date: 12/26/2021 Time: 12:21 Bed 26 Private MD: Isabel Yeung Diagnosis: Epigastric Abdominal Pain Presentation: 12/26 12:37 Chief complaint: Patient states: Called Dr. Walsh this Am and was told to come here due kr3 to sharp pain in upper abdomen. Coronavirus screen: Vaccine status: Patient reports receiving the 2nd dose of the covid vaccine. Client denies travel out of the [place] in the last 14 days. Ebola Screen: Patient denies travel to an Ebola-affected area in the 21 days before illness onset. Initial Sepsis Screen: Does the patient meet any 2 criteria? No. Patient's initial sepsis screen is negative. Does the patient have a suspected source of infection? Yes: Acute abdominal pain. Risk Assessment: Do you want to hurt yourself or someone else? Patient reports no desire to harm self or others. Onset of symptoms was December 23, 2021. 12:37 Method Of Arrival: Ambulatory kr3 12:37 Acuity: JONATHAN 3 kr3 Triage Assessment: 12:43 General: Appears in no apparent distress. uncomfortable, Behavior is calm, cooperative, kr3 appropriate for age. Pain: Complains of pain in epigastric area. Historical: - Allergies: 12:40 No Known Allergies; kr3 - Home Meds: 15:33 tizanidine 4 mg Oral cap 1 cap twice a day [Active]; tramadol 50 mg Oral tab 1 tab hb twice a day [Active]; - PMHx: 12:40 Diverticulitis; Acid reflux; kr3 - PSHx: 12:40 hysterectomy; Appendectomy; kr3 - Immunization history:: Adult Immunizations not up to date. - Social history:: Smoking status: Patient denies any tobacco usage or history of. Screenin:30 Abuse screen: Denies threats or abuse. Denies injuries from another. Nutritional hb screening: No deficits noted. Tuberculosis screening: No symptoms or risk factors identified. Fall Risk None identified. Assessment: 13:00 General: Appears in no apparent distress. uncomfortable, Behavior is calm, cooperative. hb Pain: Pain currently is 6 out of 10 on a pain scale. Neuro: Level of Consciousness is awake, alert, obeys commands, Oriented to person, place, time, situation. Cardiovascular: Patient's skin is warm and dry. Respiratory: Respiratory effort is even, unlabored, Respiratory pattern is regular, symmetrical. GI: Reports upper abdominal pain, nausea. : No signs and/or symptoms were reported regarding the genitourinary system. EENT: No signs and/or symptoms were reported regarding the EENT system. Derm: Skin is pink, warm \T\ dry. Musculoskeletal: No signs and/or symptoms reported regarding the musculoskeletal system. 14:00 Reassessment: Patient appears in no apparent distress at this time. Patient and/or hb family updated on plan of care and expected duration. Pain level reassessed. Patient is alert, oriented x 3, equal unlabored respirations, skin warm/dry/pink. 15:00 Reassessment: Patient appears in no apparent distress at this time. Patient and/or hb family updated on plan of care and expected duration. Pain level reassessed. Patient is alert, oriented x 3, equal unlabored respirations, skin warm/dry/pink. Vital Signs: 12:37 BP 124 / 81; Pulse 91; Resp 16; Temp 98.8; Pulse Ox 99% on R/A; Weight 68.04 kg; Height kr3 5 ft. 2 in. (157.48 cm); Pain 6/10; 14:30 BP 122 / 78; Pulse 84; Resp 16; Pulse Ox 99% ; Pain 2/10; hb 12:37 Body Mass Index 27.44 (68.04 kg, 157.48 cm) kr3 ED Course: 12:21 Patient arrived in ED. mr 12:21 Isabel Yeung MD is Private Physician. mr 12:40 Triage completed. kr3 12:43 Arm band placed on right wrist. Patient placed in an exam room, on a stretcher. kr3 12:44 David Gonzalez PA is PHCP. m 12:44 Kiel Bains MD is Attending Physician. jmm 12:50 Quyen Meredith, CHARLES is Primary Nurse. hb 13:39 US Abdomen Limited In Process Unspecified. EDMS 13:54 Initial lab(s) drawn, by me, sent to lab. Inserted saline lock: 20 gauge in right jw7 antecubital area, using aseptic technique. Blood collected. 13:55 CBC with Diff Sent. jw7 13:55 CMP Sent. jw7 13:55 Lipase Sent. jw7 14:30 Patient has correct armband on for positive identification. hb 14:49 CT Abd/Pelvis - IV Contrast Only In Process Unspecified. EDMS 16:02 Fredis Otero MD is Referral Physician. [facility] Administered Medications: 13:54 Drug: Pepcid (famotidine) 20 mg Route: IVP; Site: right antecubital; hb 13:54 Drug: Zofran (Ondansetron) 4 mg Route: IVP; Site: right antecubital; hb 13:54 Drug: morphine 2 mg Route: IVP; Infused Over: 4 mins; Site: right antecubital; Medication: 14:30 VIS not applicable for this client. Outcome: 16:03 Discharge ordered by . [facility] 16:22 Patient left the ED. iw Signatures: Dispatcher [employer] EDMS David Gonzalez PA PA [facility] Naz Almeida Irene, RN Quyen Mc, CHARLES RN Mandy Minaya Kelley, CHARLES RN kr3
[2021-12-27 23:51] VITALS: BP 122/78; O2SAT 99
[2021-12-28 00:24] VITALS: TEMP 98.8
== END 2021-12-26 16:22 | disposition home or self-care (01) ==
LOC: ER 12:17
DX: R10.13 Epigastric pain (principal)
CPT/HCPCS: 85025; 36415; 81003; 83690; 80053; 74177; 76705; 96375; 96374; 99284; Q9967; J2270; J2405

== ENCOUNTER 2022-05-11 20:16 | Inpatient (IN) | payer MEDICARE, OTHER ==
--- NOTE | 2022-05-11 21:39 | RAD REPORT ---
EXAM DESCRIPTION: US - Extrem Venous W Compress Nolan - 05/11/2022 9:30 pm CLINICAL HISTORY: PAIN COMPARISON: none TECHNIQUE: Real-time sonographic evaluation of the lower extremity deep venous systems was performed using color Doppler, grayscale, and compression. FINDINGS: Bilateral lower extremities. Normal compressibility, flow augmentation, phasic flow and spontaneous flow is identified in both the left and right lower extremity deep venous systems. No intraluminal filling defects seen. IMPRESSION: No DVT in either lower extremity.
--- NOTE | 2022-05-11 21:54 | RAD REPORT ---
EXAM DESCRIPTION: RAD - Chest Single View - 05/11/2022 9:35 pm CLINICAL HISTORY: COUGH COMPARISON: Chest Pa And Lat (2 Views) dated 04/03/2019; Chest Pa And Lat (2 Views) dated 06/10/2016; CHEST SINGLE VIEW dated 11/20/2014; ABDOMEN 1 VIEW KUB dated 09/28/2013 FINDINGS: Lines: None. Lungs: No evidence of edema or pneumonia. Pleural: No significant pleural effusions or pneumothorax. Cardiac: Similar size and configuration. Mediastinum: Within normal limits. Bones: No acute fractures. Other: None IMPRESSION: No acute cardiopulmonary disease.
--- NOTE | 2022-05-11 22:57 | ER ---
Nurse's Notes [facility] Name: Patricia Caldera Age: 76 yrs Sex: Female : 1945 Arrival Date: 05/11/2022 Time: 20:20 Bed 26 Private MD: Diagnosis: Cellulitis and acute lymphangitis of other parts of limb-left lower extremity failed out pt Presentation: 05/11 20:27 Chief complaint: Patient states: left leg fracture 3 weeks ago; left page is swollen, jh5 red, with puss pocket to front of page. Pt states her leg was wrapped by ortho doctor; went across the street and told her she has infection and didn't give her anything for it apart so she called Dr. Mast and saw him on Wednesday; Pro gave her CEPHALEXIN 500MG TID and she says she has been taking it TID but not leg is getting worse. Coronavirus screen: Vaccine status: Patient reports receiving the 2nd dose of the covid vaccine. Client denies travel out of the [place] in the last 14 days. Ebola Screen: Patient negative for fever greater than or equal to 101.5 degrees Fahrenheit, and additional compatible Ebola Virus Disease symptoms Patient denies exposure to infectious person. Patient denies travel to an Ebola-affected area in the 21 days before illness onset. Initial Sepsis Screen: Does the patient meet any 2 criteria? No. Patient's initial sepsis screen is negative. Does the patient have a suspected source of infection? No. Patient's initial sepsis screen is negative. Risk Assessment: Do you want to hurt yourself or someone else? Patient reports no desire to harm self or others. 20:27 Method Of Arrival: Ambulatory [facility] 20:27 Acuity: JONATHAN 3 jh5 Triage Assessment: 20:31 General: Appears uncomfortable, slender, well groomed, well developed, Behavior is jh5 calm, cooperative, appropriate for age. Pain: Complains of pain in left leg. Historical: - PMHx: 20:31 acid reflux; Diverticulitis; jh5 - PSHx: 20:31 Appendectomy; hysterectomy; jh5 - Immunization history:: Adult Immunizations up to date. - Social history:: Smoking status: Patient denies any tobacco usage or history of. - Family history:: not pertinent. Screenin:21 [facility] ED Fall Risk Assessment (Adult) History of falling in the last 3 months, kl including since admission Yes- single mechanical fall (1 pt) Confusion or Disorientation No (0 pts) Intoxicated or Sedated No (0 pts) Impaired Gait Yes (1 pt) Mobility Assist Device Used No (0 pt) Altered Elimination No (0 pt) Score/Fall Risk Level 0 - 2 = Low Risk Oriented to surroundings, Maintained a safe environment. Abuse screen: Denies threats or abuse. Abuse screen: Denies threats or abuse. Nutritional screening: No deficits noted. Tuberculosis screening: No symptoms or risk factors identified. Assessment: 23:20 General: Appears uncomfortable, well groomed, well developed, Behavior is calm, kl cooperative. Pain: Complains of pain in left page. Neuro: No deficits noted. Cardiovascular: No deficits noted. Respiratory: No deficits noted. GI: No deficits noted. No signs and/or symptoms were reported involving the gastrointestinal system. : No deficits noted. No signs and/or symptoms were reported regarding the genitourinary system. EENT: No deficits noted. EENT: Derm: Skin is red, to left lower extremity Skin temperature is hot swelling noted. 05/12 01:00 Reassessment: Patient appears in no apparent distress at this time. Patient and/or jb4 family updated on plan of care and expected duration. Pain level reassessed. Patient is alert, oriented x 3, equal unlabored respirations, skin warm/dry/pink. Vital Signs: 05/11 20:27 BP 125 / 71; Pulse 80; Resp 18; Temp 98.2; Pulse Ox 100% ; Weight 69.85 kg; Height 5 jh5 ft. 2 in. (157.48 cm); Pain 10/10; 22:13 BP 137 / 69; Pulse 76; Resp 18; Temp 98.4; Pulse Ox 99% on R/A; Weight 69.85 kg; Height rv1 5 ft. 2 in. (157.48 cm); Pain 10/10; 23:23 BP 121 / 61; Pulse 78; Resp 17 S; Pulse Ox 98% on R/A; kl 05/12 01:00 BP 124 / 61; Pulse 81; Resp 16; Pulse Ox 94% on R/A; jb4 05/11 22:13 Body Mass Index 28.17 (69.85 kg, 157.48 cm) rv1 ED Course: 05/11 20:20 Patient arrived in ED. ja2 20:31 Triage completed. jh5 20:31 Arm band placed on right wrist. jh5 20:42 Ramakrishna Knight MD is Attending Physician. gurinder 21:32 US Extremity Venous W Compression Nolan In Process Unspecified. EDMS 21:37 XRAY Chest (1 view) In Process Unspecified. EDMS 22:55 Marcus Thompson is Hospitalizing Provider. gurinder 22:57 Tib Fib Left XRAY In Process Unspecified. EDMS 23:22 No provider procedures requiring assistance completed. Inserted saline lock: 20 gauge kl in left antecubital area, using aseptic technique. Blood collected. 23:22 Lactate w/ 2H reflex if indic. Sent. kl 23:22 Blood Culture Adult (2) Sent. kl 23:22 Basic Metabolic Panel Sent. kl 23:22 CBC with Diff Sent. kl 23:22 LFT's Sent. kl 23:23 Magnesium Sent. kl 23:23 NT PRO-BNP Sent. kl 23:23 PT-INR Sent. kl 23:23 Troponin HS Sent. kl 05/12 00:09 Lower Ext Wo Con W/ Mpr In Process Unspecified. EDMS Administered Medications: 00:14 Drug: NS 0.9% 1000 ml Route: IV; Rate: 1 bolus; Site: left antecubital; jb4 01:19 Follow up: Response: No adverse reaction; IV Status: Completed infusion; IV Intake: jb4 1000ml 00:14 Drug: Zosyn (piperacillin-tazobactam) 3.375 grams Route: IVPB; Infused Over: 60 mins; jb4 Site: left antecubital; 01:20 Follow up: Response: No adverse reaction; IV Status: Completed infusion; IV Intake: jb4 100ml 00:14 Drug: Pepcid (famotidine) 20 mg Route: IVP; Site: left antecubital; jb4 00:14 Drug: HYDROcodone-acetaminophen 5 mg-325 mg 1 tabs Route: PO; jb4 01:19 Follow up: Response: No adverse reaction; Marked relief of symptoms; Pain is decreased jb4 01:19 Drug: vancoMYCIN 1 grams Route: IVPB; Infused Over: 2 hrs; Site: left antecubital; jb4 Intake: 01:19 IV: 1000ml; Total: 1000ml. jb4 01:20 IV: 100ml; Total: 1100ml. jb4 Outcome: 05/11 22:57 Decision to Hospitalize by Provider. gurinder 05/12 12:04 Patient left the ED. aa5 Signatures: Dispatcher [employer] EDManuela Strauss, RN Ramakrishna Urrutia MD MD cha Calderon, Audri RN RN aa5 Sarbjit Patel RN RN jb4 Deepika Kearns Jessica, RN RN jh5 Kylie Brisco[facility]
--- NOTE | 2022-05-11 22:57 | EDPHYS ---
Physician Documentation [facility] Name: Patricia Caldera Age: 76 yrs Sex: Female : 1945 Arrival Date: 05/11/2022 Time: 20:20 Bed 26 Private MD: AQUILINO Physician Ramakrishna Knight HPI: 05/11 22:44 This 76 yrs old Female presents to ER via Ambulatory with complaints of Foot gurinder Infection. 22:44 The patient presents with decreased range of motion, an injury, pain, that is acute. gurinder The complaints affect the lateral aspect of left calf, left lateral ankle, left calf, left Achilles, medial aspect of left calf, left medial ankle, left page and anterior aspect of left ankle. Context: The problem was sustained at an unknown site, resulted from a direct blow. Onset: The symptoms/episode began/occurred 3 week(s) ago. Modifying factors: The symptoms are alleviated by elevating leg, the symptoms are aggravated by movement, weight bearing, bending knee. Associated signs and symptoms: The patient has no apparent associated signs or symptoms. Treatment prior to arrival includes: elevation of the extremity, prescription medications, keflex. Severity of symptoms: At their worst the symptoms were mild, moderate, in the emergency department the symptoms are actually worse. The patient has not experienced similar symptoms in the past. Historical: - PMHx: 20:31 acid reflux; Diverticulitis; jh5 - PSHx: 20:31 Appendectomy; hysterectomy; jh5 - Immunization history:: Adult Immunizations up to date. - Social history:: Smoking status: Patient denies any tobacco usage or history of. - Family history:: not pertinent. ROS: 22:44 Constitutional: Negative for fever, chills, and weight loss, Eyes: Negative for injury, gurinder pain, redness, and discharge, ENT: Negative for injury, pain, and discharge, Neck: Negative for injury, pain, and swelling, Cardiovascular: Negative for chest pain, palpitations, and edema, Respiratory: Negative for shortness of breath, cough, wheezing, and pleuritic chest pain, Abdomen/GI: Negative for abdominal pain, nausea, vomiting, diarrhea, and constipation, Back: Negative for injury and pain, : Negative for injury, bleeding, discharge, and swelling, Neuro: Negative for headache, weakness, numbness, tingling, and seizure, Psych: Negative for depression, anxiety, suicide ideation, homicidal ideation, and hallucinations, Allergy/Immunology: Negative for hives, rash, and allergies, Endocrine: Negative for neck swelling, polydipsia, polyuria, polyphagia, and marked weight changes, Hematologic/Lymphatic: Negative for swollen nodes, abnormal bleeding, and unusual bruising. 22:44 MS/extremity: Positive for decreased range of motion, erythema, pain, swelling, tenderness. 22:44 Skin: Positive for cellulitis, of the lateral aspect of left calf, left lateral ankle, left calf, left Achilles, medial aspect of left calf, left medial ankle, left page and anterior aspect of left ankle, diffusely. Exam: 22:44 Constitutional: This is a well developed, well nourished patient who is awake, alert, gurinder and in no acute distress. Head/Face: Normocephalic, atraumatic. Eyes: Pupils equal round and reactive to light, extra-ocular motions intact. Lids and lashes normal. Conjunctiva and sclera are non-icteric and not injected. Cornea within normal limits. Periorbital areas with no swelling, redness, or edema. ENT: Nares patent. No nasal discharge, no septal abnormalities noted. Tympanic membranes are normal and external auditory canals are clear. Oropharynx with no redness, swelling, or masses, exudates, or evidence of obstruction, uvula midline. Mucous membranes moist. Neck: Trachea midline, no thyromegaly or masses palpated, and no cervical lymphadenopathy. Supple, full range of motion without nuchal rigidity, or vertebral point tenderness. No Meningismus. Chest/axilla: Normal chest wall appearance and motion. Nontender with no deformity. No lesions are appreciated. Cardiovascular: Regular rate and rhythm with a normal S1 and S2. No gallops, murmurs, or rubs. Normal PMI, no JVD. No pulse deficits. Respiratory: Lungs have equal breath sounds bilaterally, clear to auscultation and percussion. No rales, rhonchi or wheezes noted. No increased work of breathing, no retractions or nasal flaring. Abdomen/GI: Soft, non-tender, with normal bowel sounds. No distension or tympany. No guarding or rebound. No evidence of tenderness throughout. Back: No spinal tenderness. No costovertebral tenderness. Full range of motion. Female : Normal external genitalia. Skin: Warm, dry with normal turgor. Normal color with no rashes, no lesions, and no evidence of cellulitis. Neuro: Awake and alert, GCS 15, oriented to person, place, time, and situation. Cranial nerves II-XII grossly intact. Motor strength 5/5 in all extremities. Sensory grossly intact. Cerebellar exam normal. Normal gait. Psych: Awake, alert, with orientation to person, place and time. Behavior, mood, and affect are within normal limits. 22:44 Musculoskeletal/extremity: ROM: full active range of motion, full passive range of motion, in the lateral aspect of left calf, left calf, medial aspect of left calf and left page, limited active range of motion due to pain, limited passive range of motion due to pain, Circulation is intact in all extremities. Sensation intact. Compartment Syndrome exam of affected extremity: is normal. DVT Exam: negative Homans' sign noted on exam, no appreciated bluish discoloration, pain, swelling, tenderness, erythema, increased warmth, of the left leg, of the lateral aspect of left calf, left calf, medial aspect of left calf and left page. Vital Signs: 20:27 BP 125 / 71; Pulse 80; Resp 18; Temp 98.2; Pulse Ox 100% ; Weight 69.85 kg; Height 5 jh5 ft. 2 in. (157.48 cm); Pain 10/10; 22:13 BP 137 / 69; Pulse 76; Resp 18; Temp 98.4; Pulse Ox 99% on R/A; Weight 69.85 kg; Height rv1 5 ft. 2 in. (157.48 cm); Pain 10/10; 23:23 BP 121 / 61; Pulse 78; Resp 17 S; Pulse Ox 98% on R/A; kl 05/12 01:00 BP 124 / 61; Pulse 81; Resp 16; Pulse Ox 94% on R/A; jb4 05/11 22:13 Body Mass Index 28.17 (69.85 kg, 157.48 cm) rv1 MDM: 05/11 20:42 Patient medically screened. gurinder 22:50 Differential diagnosis: contusion, tendonitis. Data reviewed: vital signs, nurses gurinder notes, lab test result(s), EKG, radiologic studies, doppler, plain films. Consideration of Admission/Observation Patient was admitted/placed on observation. Escalation of care including admission/observation considered. I considered the following discharge prescriptions or medication management in the emergency department Medications were administered in the Emergency Department. See MAR. Test considered but Not performed: MRI: not done. 22:53 Management of patient was discussed with the following: Hospitalist: donaldo whiting plan[facility] 05/11 20:43 Order name: Basic Metabolic Panel; Complete Time: 00:10 [facility] 05/11 20:43 Order name: CBC with Diff; Complete Time: 00:10 [facility] 05/11 20:43 Order name: LFT's; Complete Time: 00:10 [facility] 05/11 20:43 Order name: Magnesium; Complete Time: 00:10 [facility] 05/11 20:43 Order name: NT PRO-BNP; Complete Time: 00:10 [facility] 05/11 20:43 Order name: PT-INR 05/11 20:43 Order name: Troponin HS; Complete Time: 00:10 [facility] 05/11 20:43 Order name: XRAY Chest (1 view); Complete Time: 22:42 [facility] 05/11 20:43 Order name: Blood Culture Adult (2) 05/11 20:43 Order name: Lactate w/ 2H reflex if indic.; Complete Time: 09:05 [facility] 05/11 20:43 Order name: SARS RAPID; Complete Time: 09:05 [facility] 05/12 04:30 Order name: CBC with Automated Diff; Complete Time: 09:05 [facility] 05/12 04:55 Order name: Hemoglobin A1c; Complete Time: 09:05 [facility] 05/12 04:56 Order name: Basic Metabolic Panel; Complete Time: 09:05 [facility] 05/11 20:43 Order name: EKG; Complete Time: 20:44 gurinder 05/11 20:43 Order name: Cardiac monitoring; Complete Time: 23:22 [facility] 05/11 20:43 Order name: EKG - Nurse/Tech; Complete Time: 23:22 [facility] 05/11 20:43 Order name: IV Saline Lock; Complete Time: 23:22 [facility] 05/11 20:43 Order name: Labs collected and sent; Complete Time: 23:22 [facility] 05/11 20:43 Order name: O2 Per Protocol; Complete Time: 23:22 [facility] 05/11 20:43 Order name: O2 Sat Monitoring; Complete Time: 23:22 [facility] 05/11 20:43 Order name: US Extremity Venous W Compression Nolan; Complete Time: 22:42 gurinder 05/11 22:43 Order name: Tib Fib Left XRAY gurinder 05/11 23:38 Order name: Lower Ext Wo Con W/ Mpr EDMS Administered Medications: 05/12 00:14 Drug: NS 0.9% 1000 ml Route: IV; Rate: 1 bolus; Site: left antecubital; jb4 01:19 Follow up: Response: No adverse reaction; IV Status: Completed infusion; IV Intake: jb4 1000ml 00:14 Drug: Zosyn (piperacillin-tazobactam) 3.375 grams Route: IVPB; Infused Over: 60 mins; jb4 Site: left antecubital; 01:20 Follow up: Response: No adverse reaction; IV Status: Completed infusion; IV Intake: jb4 100ml 00:14 Drug: Pepcid (famotidine) 20 mg Route: IVP; Site: left antecubital; jb4 00:14 Drug: HYDROcodone-acetaminophen 5 mg-325 mg 1 tabs Route: PO; jb4 01:19 Follow up: Response: No adverse reaction; Marked relief of symptoms; Pain is decreased jb4 01:19 Drug: vancoMYCIN 1 grams Route: IVPB; Infused Over: 2 hrs; Site: left antecubital; jb4 Disposition Summary: 05/11/22 22:57 Hospitalization Ordered Hospitalization Status: Inpatient Admission gurinder Provider: Marcus Thompson cha Condition: Fair gurinder Problem: new gurinder Symptoms: have improved gurinder Bed/Room Type: Standard [facility] Location: Telemetry/MedSurg (Inpatient)(05/12/22 09:53) Room Assignment: [facility](05/12/22 09:53) bd Diagnosis - Cellulitis and acute lymphangitis of other parts of limb - left lower extremity gurinder failed out pt Forms: - Medication Reconciliation Form gurinder - SBAR form gurinder Signatures: Dispatcher [employer] EDMS Aysha Montenegro Corey, MD MD cha Mickail, Joel, PA PA jmm Attema, Lee, MARINE PIPEFITTER-C MARINE PIPEFITTER-Cla1 Sarbjit Patel RN RN jb4 Last Singletary mw2 Deepika Tan RN RN jh5 Corrections: (The following items were deleted from the chart) 05/11 23:38 23:34 CT-LOWER EXTREMITY W/O CONTR ordered. EDMS EDMS 05/12 00:28 05/11 22:57 Telemetry/MedSurg (Inpatient) gurinder mw2 05/12 00:28 05/11 22:57 gurinder mw2 05/12 09:53 00:28 [facility] ER HOLD mw bd : 00:28 ERHOLD- mw2 bd
[2022-05-11] MEDS ORDERED: HYDROCODONE/APAP 5/325 MG TAB ONE (23:55)
[2022-05-11] MEDS ORDERED: VANCOMYCIN 1 GM/VIAL ONE (23:55)
[2022-05-11] MEDS ORDERED: PIPERACIL/TAZO 3.375 GM VIAL IV ONE (23:56)
[2022-05-11] MEDS ORDERED: NA CHLORIDE 0.9% 100 ML ONE (23:56)
[2022-05-11] MEDS ORDERED: NA CHLORIDE 0.9% 250 ML ONE (23:56)
[2022-05-11] MEDS ORDERED: FAMOTIDINE 20 MG/2 ML VIAL IV ONE (23:56)
[2022-05-11] MEDS ORDERED: NA CHLORIDE 0.9% 1,000 ML ONE (23:56)
[2022-05-11 23:57] LABS: Absolute Lymphocytes (CBC) 1.3 K/uL (0.7-4.9); Lymphocytes % 20.3 % (15.3-44.8); MCV 100.3 fL (80-100); MPV 8.7 fL (7.6-11.3); RBC Red Blood Cell Count 3.49 M/uL (3.86-4.86)
[2022-05-12 00:08] LABS: Bilirubin Direct 0.3 mg/dL (0-0.2); Bilirubin Total 0.6 mg/dL (0.2-1.0); Magnesium 2.6 mg/dL (1.6-2.4); Potassium 4.2 mmol/L (3.5-5.1); Protein, Total 7.7 g/dL (6.4-8.2); Troponin High Sensitivity 7.8 pg/mL (<58.9)
[2022-05-12 00:17] LABS: SARS-CoV-2 Antigen Rapid Res Negative (Negative)
--- NOTE | 2022-05-12 00:51 | P.HP ---
Certification for Inpatient Patient admitted to: Inpatient With expected LOS: >2 Midnights Patient will require the following post-hospital care: None Practitioner: I am a practitioner with admitting privileges, knowledge of patient current condition, hospital course, and medical plan of care. Services: Services provided to patient in accordance with Admission requirements found in Title 42 Section 412.3 of the Code of Federal Regulations <LydiaJeremy Higgins - Last Filed: 05/12/22 00:47> Patient History Date of Service: 05/12/22 Reason for admission: Left lower extremity cellulitis History of Present Illness: 76-year-old female with history of hypertension presents the emergency department with concern for infection of the left lower leg. She reports that approximately 3 weeks ago she dropped a frozen meat out of the freezer which landed on her left lower leg, she had since been walking on it for about a week but still having significant pain, she went to an orthopedic physician who told her she had a small fracture in the lateral ankle area and has been wrapping it for her in the clinic, she reports that she had a lot of itching and has been scratching the area she noticed the last few days it started to become erythematous, painful. She has been on Keflex prescribed by her PCP since 05/08/2022 and noted significant worsening for that reason she came to the emergency department. She has significant cellulitis of left lower extremity negative for DVT bilaterally chest x-ray was unremarkable., CT of the lower extremity ordered to evaluate for possible abscess. Patient given antibiotics vancomycin/cefepime. Does not meet criteria for sepsis at this time. - Past Medical/Surgical History Diabetic: No -: hypertension -: Hysterectomy -: Bladder lift Psychosocial/ Personal History: patient lives at home, alone. - Family History Mother -: Diabetes - Social History Smoking Status: Never smoker Alcohol use: No CD- Drugs: No Caffeine use: Yes Place of Residence: Home <Jeremy Freeman - Last Filed: 05/12/22 00:47> Date of Service: 05/12/22 <Rajat Wan - Last Filed: 05/12/22 11:18> Allergies No Known Drug Allergies Allergy (Unverified 08/29/14 20:43) Unknown Home Medications: NK [No Home Meds] 07/06/13 Review of Systems 10-point ROS is otherwise unremarkable Integumentary: As per HPI <Jeremy Freeman - Last Filed: 05/12/22 00:47> Physical Examination - Physical Exam General: Alert, In no apparent distress, Oriented x3 HEENT: Atraumatic, PERRLA, Mucous membr. moist/pink, EOMI, Sclerae nonicteric Neck: Supple, 2+ carotid pulse no bruit, No LAD, Without JVD or thyroid abnormality Respiratory: Clear to auscultation bilaterally, Normal air movement Cardiovascular: Regular rate/rhythm, Normal S1 S2 Gastrointestinal: Normal bowel sounds, No tenderness Musculoskeletal: No tenderness Integumentary: Tenderness/swelling, Erythema, Warmth Neurological: Normal gait, Normal speech, Normal strength at 5/5 x4 extr, Normal tone, Normal affect Lymphatics: No axilla or inguinal lymphadenopathy - Studies Laboratory Data (last 24 hrs) 05/11/22 22:55: WBC 6.50, Hgb 11.6 L, Hct 35.0 L, Plt Count 227 05/11/22 22:55: Sodium 138, Potassium 4.2, BUN 29 H, Creatinine 1.12 H, Glucose 95, Magnesium 2.6 H, Total Bilirubin 0.6, AST 29, ALT 25, Alkaline Phosphatase 128 H <Jeremy Freeman - Last Filed: 05/12/22 00:47> - Studies Laboratory Data (last 24 hrs) 05/11/22 22:55: WBC 6.50, Hgb 11.6 L, Hct 35.0 L, Plt Count 227 05/11/22 22:55: Sodium 138, Potassium 4.2, BUN 29 H, Creatinine 1.12 H, Glucose 95, Magnesium 2.6 H, Total Bilirubin 0.6, AST 29, ALT 25, Alkaline Phosphatase 128 H 05/11/22 20:43: PT Cancelled, INR Cancelled <Rajat Wan - Last Filed: 05/12/22 11:18> Assessment and Plan - Plan Assessment: Cellulitis of the left lower extremityfailed outpatient treatment Hypertension Plan: Cellulitis of the left lower extremityfailed outpatient treatment: Patient was on Keflex outpatient beginning on 05/08/2022, she has significant cellulitis to the left lower extremity. Negative for DVT, CT without contrast ordered to evaluate for possible abscess given severity of cellulitis and area of induration in the pretibial area. Continue antibiotics vancomycin/cefepime. Does not meet criteria for sepsis at this time. A1c in the morning. Hypertension: Continue home medications as appropriate. DVT PPX: Lovenox full Code status: Full code Discharge Plan: Home Plan to discharge in: 72 Hours - Advance Directives Does patient have a Living Will: Yes Does patient have a Durable POA for Healthcare: No - Code Status/Comfort Care Code Status Assessed: Yes (Full code ) Critical Care: No Time Spent Managing Pts Care (In Minutes): 55 <Jeremy Freeman - Last Filed: 05/12/22 00:47> Physician Review: Patient Assessed, Agree with Above Assessment and Plan <Rajat Wan - Last Filed: 05/12/22 11:18>
[2022-05-12] MEDS ORDERED: ONDANSETRON 4 MG/2 ML VIAL IV PRN (01:25)
[2022-05-12] MEDS ORDERED: METHYLPREDNISOLONE 125 MG INJ ONE (02:32)
[2022-05-12 04:28] LABS: Absolute Lymphocytes (CBC) 1.4 K/uL (0.7-4.9); Hematocrit 30.2 % (36.0-45.0); Lymphocytes % 23.5 % (15.3-44.8); MCV 100.7 fL (80-100); MPV 7.9 fL (7.6-11.3)
[2022-05-12 04:51] LABS: Potassium 4.3 mmol/L (3.5-5.1)
[2022-05-12] MEDS ORDERED: PNEUMOCOCCAL VACCINE 0.5 ML IMVAC ONE (08:00)
[2022-05-12] MEDS: CEFEPIME 1 GM in NA CHLORIDE 0.9% 100 ML IV SCH ×2 (09:00→20:28)
[2022-05-12] MEDS ORDERED: VANCOMYCIN 1 GM in NA CHLORIDE 0.9% 250 ML IVPB SCH (09:00)
[2022-05-12] MEDS ORDERED: CEFEPIME 1 GM/VIAL ONE (09:38)
[2022-05-12] MEDS ORDERED: NA CHLORIDE 0.9% 100 ML ONE (09:39)
[2022-05-12] MEDS ORDERED: HYDROCODONE/APAP 5/325 MG TAB ONE (09:59)
[2022-05-12] MEDS: HYDROCODONE/APAP 5/325 MG TAB PO PRN ×2 (10:11→18:08)
--- NOTE | 2022-05-12 11:14 | RAD REPORT ---
EXAM DESCRIPTION: RAD - Tib Fib Left - 05/11/2022 10:55 pm CLINICAL HISTORY: 76 years, Female, Pain COMPARISON: None. FINDINGS: 2 X-ray views of the left tibia and fibula (frontal and lateral views) were performed. No acute bony injuries were demonstrated. No gross articular abnormality is identified. There are no gross intraosseous lesions. No periosteal reaction were seen. Soft tissue swelling mid tib-fi b. IMPRESSION: No acute bony injuries were demonstrated. Electronically signed by: Jonas Sims MD 05/11/2022 11:21 PM HEALTH/SAFETY JOB TITLES Due to temporary technical issues with the PACS/Fluency reporting system, reports are being signed by the in house radiologists without review as a courtesy to insure prompt reporting. The interpreting radiologist is fully responsible for the content of the report.
--- NOTE | 2022-05-12 11:19 | RAD REPORT ---
EXAM DESCRIPTION: CT - Lower Ext Wo Con W/ Mpr - 05/12/2022 6:15 am CLINICAL HISTORY: 76 years, Female, R/O abscess LLE, recent fracture, cellulitis COMPARISON: None. TECHNIQUE: Multiple transaxial tomograms of the left lower extremity-left tibia and fibula were perf ormed utilizing 2 mm slice thickness at 2 mm interval reconstruction. 2-D multiplanar reformats in th e sagittal and coronal plane were performed and reviewed. This exam was performed according to our departmental dose-optimization protocol, which includes auto mated exposure control, adjustment of the mA and/or kV according to patient size and/or use of iterat leyla reconstruction technique. FINDINGS: There is mild bony osteopenia. There is no evidence for acute fracture. There is no eviden ce for periosteal reaction/or erosive changes. Soft tissues demonstrate haziness especially bilateral malleoli IMPRESSION: No evidence for acute fracture or dislocation. No evidence for periosteal reaction/or erosive changes. Soft tissue haziness especially bilateral malleoli. Electronically signed by: Jonas Sims MD 05/12/2022 12:17 AM MINE PRODUCTION ENGINEER Due to temporary technical issues with the PACS/Fluency reporting system, reports are being signed by the in house radiologists without review as a courtesy to insure prompt reporting. The interpreting radiologist is fully responsible for the content of the report.
[2022-05-12] MEDS: SILVER SULFADIAZINE 1% 25 GM TOP SCH (13:30)
[2022-05-12] MEDS ORDERED: NA CHLORIDE 0.9% 250 ML ONE (19:39)
[2022-05-12] MEDS ORDERED: VANCOMYCIN 500 MG/VIAL ONE (19:48)
[2022-05-12] MEDS ORDERED: VANCOMYCIN 1 GM/VIAL ONE (19:48)
[2022-05-12] MEDS: VANCOMYCIN 1.25 GM in NA CHLORIDE 0.9% 250 ML IVPB SCH (20:28)
[2022-05-13 03:48] LABS: Absolute Lymphocytes (CBC) 1.6 K/uL (0.7-4.9); Hematocrit 29.3 % (36.0-45.0); Lymphocytes % 31.8 % (15.3-44.8); MCV 101.3 fL (80-100); MPV 8.6 fL (7.6-11.3); RBC Red Blood Cell Count 2.89 M/uL (3.86-4.86)
[2022-05-13 04:00] LABS: Potassium 4.5 mmol/L (3.5-5.1)
[2022-05-13] MEDS: CEFEPIME 1 GM in NA CHLORIDE 0.9% 100 ML IV SCH ×2 (07:41→20:28)
[2022-05-13] MEDS: SILVER SULFADIAZINE 1% 25 GM TOP SCH (07:41)
[2022-05-13] MEDS: HYDROCODONE/APAP 5/325 MG TAB PO PRN (07:42)
--- NOTE | 2022-05-13 11:55 | RAD REPORT ---
EXAM DESCRIPTION: CT - Tib Fib Left W Con - 05/13/2022 11:43 am CLINICAL HISTORY: swollen rule out abcess, leg pain, edema COMPARISON: Lower Ext Wo Con W/ Mpr dated 05/11/2022 TECHNIQUE: Axial 5 millimeter thick images of the left lower leg obtained following dynamic enhancem ent using nonionic IV contrast. Sagittal and coronal reconstruction images were generated and reviewe d. All CT scans are performed using dose optimization technique as appropriate and may include automate d exposure control or mA/KV adjustment according to patient size. FINDINGS: In the anterolateral left lower extremity there is an elongated hypodense collection with a slightly shaggy circumferential enhancing rim or rind. This is at the muscle fat interface. This ma y be deep to the fascia surrounding the muscle grouping of the leg. This collection is seen from the mid tibia level to just above the ankle joint. Measurements are 14 cm cc with maximum long and short axis transverse dimension of 3.3 x 1.7 centimeter. No foreign body seen. No air identified within the collection. The there is stranding and edema in th e surrounding subcutaneous fat and skin. In the setting of a cellulitis clinical picture this elongated low-density collection is most likely an abscess. Old hematoma/ seroma would be considered less likely. No acute bone finding. No other abnormal fluid collection. Skeletal musculature is otherwise unremark able. IMPRESSION: In the anterolateral left leg from the mid tibia level to the ankle at the muscle subcut aneous fat interface, there is a rim enhancing low-density collection 14 cm CC x 3.3 cm TR x 1.7 cm A P. Cellulitis changes are seen in the surrounding tissues. This collection is most likely an abscess.
[2022-05-13] MEDS ORDERED: VANCOMYCIN 1.25 GM in NA CHLORIDE 0.9% 250 ML IVPB SCH (12:00)
[2022-05-13] MEDS ORDERED: Ringers Lactate 1,000 ML IV ONE (14:56)
[2022-05-13] MEDS ORDERED: BUPIVACAINE 0.25% PF 10 ML VIAL ONE (15:03)
[2022-05-13] MEDS ORDERED: SUCCINYLCHOLINE 20 MG/ML (10 ML) IV ONE (15:35)
[2022-05-13] MEDS ORDERED: propofoL 200 MG/20 ML VIAL IV ONE (15:41)
[2022-05-13] MEDS ORDERED: FENTANYL CITR 100 MCG/2 ML ONE (15:41)
[2022-05-13] MEDS ORDERED: MIDAZOLAM HCL 2 MG/2 ML INJ ONE (15:41)
[2022-05-13] MEDS ORDERED: ONDANSETRON 4 MG/2 ML VIAL ONE (16:17)
[2022-05-13] MEDS ORDERED: dexAMETHasone 10 MG/ML VIAL ONE (16:17)
--- NOTE | 2022-05-13 16:38 | P.OP ---
Preoperative diagnosis: LEFT lower extremity abscess Postoperative diagnosis: LEFT lower extremity abscess Primary procedure: Incision and Drainage of LEFT lower extremity abscess Anesthesia: GETA + Local Estimated blood loss: <30cc Specimen: cultures Findings: LEFT lateral leg abscess ~ 15cm to fascia over muscle Complications: None Transferred to: Recovery Room Condition: Good
[2022-05-13] MEDS ORDERED: MORPHINE 2 MG/ML SYR IV PRN (16:48)
[2022-05-13] MEDS ORDERED: KETOROLAC 30 MG/ML INJ ONE (16:59)
[2022-05-13] MEDS: FENTANYL CITR 100 MCG/2 ML ONE ×2 (17:13→17:22)
--- NOTE | 2022-05-13 19:15 | OP ---
Date of Procedure: 05/13/2022 Surgeon: Ashkan Katz MD, Preoperative Diagnosis: Left lower extremity abscess. Postoperative Diagnosis: Left lower extremity abscess. Procedure Performed: Incision and drainage of left lower extremity abscess. Anesthesia: General endotracheal plus local with 0.25% Marcaine. Estimated Blood Loss: 30 cc. Specimen: Culture sent for aerobic and anaerobic speciation. Findings: Left lateral lower extremity abscess approximately 15 cm in length extending to the fascia overlying the muscle. Complications: None. The patient was transferred to recovery room in good condition. Procedure In Detail: After informed consent was obtained, the patient was brought to the operating r oom and prepped and draped in the usual sterile fashion. After adequate anesthesia was achieved, I m kristina a linear incision overlying an area of fluctuance on the left lateral leg down through subcutaneo us tissues using a 15 blade. I then encountered abscess material. This was sent for both aerobic an d anaerobic speciation at this time. I then opened the cavity in its entirety and the abscess was co mpletely drained. Hemostasis was achieved with electrocautery. After the area was completely opened , I then irrigated the area copiously. Good hemostasis was ensured at this point. No additional hem ostat was required. I then packed the wound with Kerlix soaked in Vashe material damp to dry and ayesha lied a sterile dressing over the top and wrapped the lower extremity with an Jerald bandage. The patien t tolerated the procedure well without evidence of any complication and transferred to PACU in good condition. All counts were correct at t he end of the case. KENZIE/ANTONIA Voice ID: [id number] Report ID: [id number]
--- NOTE | 2022-05-13 19:22 | P.PN ---
Subjective Date of Service: 05/13/22 Chief Complaint: Left lower extremity cellulitis No acute events overnight. She states that her left lower extremity pain is persistent, but improving. Although the erythema seems to have improved, there appears to be more of a fluid collection on the anterior left page this morning. Will obtain a repeat CT of the lower extremity. Review of Systems 10-point ROS is otherwise unremarkable Integumentary: Rash (left lower extremity cellulitis) Physical Examination - Vital Signs Temperature: 97.5 F Blood Pressure: 126/65 Pulse: 78 Respirations: 18 Pulse Ox (%): 97 - Physical Exam General: Alert, In no apparent distress, Oriented x3 HEENT: Atraumatic, Mucous membr. moist/pink, EOMI, Sclerae nonicteric Neck: JVD not distended Respiratory: Clear to auscultation bilaterally, Normal air movement Cardiovascular: No edema, Regular rate/rhythm, Normal S1 S2, No rubs, No murmurs Capillary refill: <2 Seconds Gastrointestinal: Normal bowel sounds, Soft and benign, Non-distended, No tenderness, No rebound, No guarding Musculoskeletal: No clubbing Integumentary: Tenderness/swelling (LLE), Erythema (LLE), Warmth (LLE) Assessment And Plan - Plan # Suspect Left Lower Extremity Purulent Cellulitis # Reported Recent Left Ankle Fracture - S/P 4 days of outpatient cephalexin, without improvement in her symptoms - Evaluation thus far: - Does not currently meet sepsis criteria - Bilateral Doppler ultrasound = "no DVT in either lower extremity." - Left lower extremity x-ray = "no acute bony injuries were demonstrated." - CT left lower extremity (05/11) = "no evidence for acute fracture or dislocation. No evidence for periosteal reaction/or erosive changes. Soft tissue haziness especially bilateral malleoli." - Repeat CT left lower extremity (05/13) = pending - Management plan: - General Surgery consulted and spoke with Dr. Katz - recommendations appreciated - Continue Vancomycin + Cefepime - Blood cultures obtained - Lactate = 1.3 # Hypertension - Reconcile home medications once verified Rajat Wan M.D.
--- NOTE | 2022-05-13 19:23 | CON ---
Date of Consultation: 05/13/2022 Brief History Of Present Illness: The patient is a 76-year-old female who presents with his tory of concerns of wound infection of the left foot. She states that approximately 3 weeks ago she noted that there was some swelling after an object rubbed across it, after being dropped. It got sig nificantly worse. There was redness, swelling, tenderness, and as such, she came to the emergency ro om with the above-stated complaint with worsening redness, tenderness, and pain. Past Medical History: Significant for acid reflux and diverticulitis. Past Surgical History: Appendectomy and hysterectomy. She had a bladder lift as well. No history o f diabetes. She denies smoking, alcohol, or recreational drug use. Allergies: NO KNOWN DRUG ALLERGIES. Home Medications: None. Review of Systems: A 10-point review of systems other than HPI, denies. Physical Examination: General: At the time of examination, she is awake, alert, and oriented. Psychiatric: Appropriate. Conversive. HEENT: She is normocephalic. Sclerae icteric. Mucous membranes moist. Oropharynx clear. Neck: Supple without JVD. Chest: Normal expansion and excursion. Cardiovascular: Regular rate and rhythm. Pulmonary: Clear to auscultation bilaterally. Laboratory Data: White blood cell count 5.8, hemoglobin 10.1, hematocrit 30.2, and platelet count wa s 199. Chemistry: Sodium 140, potassium 4.3, chloride 110, carbon dioxide 27, BUN 23, creatinine 0. 92. Lactic acid is 1.3. COVID was negative. She had a lower extremity CT on 05/11, which only show ed no evidence of acute fracture or dislocation. No evidence of periosteal reaction, erosive changes , soft tissue haziness especially bilateral malleoli. She had a repeat CT scan of the lower extremit y after I ordered it and officially read as anterolateral left leg from mid tibia to ankle. Muscle s ubcutaneous fat interface has a rim enhancing low density collection of 14 cm x 3.3 cm x 1.7 cm. Beverly lulitis changes seen surrounding tissues, most likely an abscess. Assessment And Plan: This is a 76-year-old female who comes in with cellulitis and abscess of the le ft lower extremity. 1.IV fluid hydration. 2.Antibiotic coverage. 3.I have explained the risks, benefits, and alternatives of incision, drainage, debridement, and exp loration of this area including, but not limited to bleeding, infection, damage to surrounding tissue s, injury to the nerves affecting the function of the foot and lower extremity. She agrees to procee d as indicated. Thank you for this interesting consult. KENZIE/ANTONIA Voice ID: [id number] Report ID: [id number]
[2022-05-13] MEDS: VANCOMYCIN 1.25 GM in NA CHLORIDE 0.9% 250 ML IVPB SCH (22:30)
[2022-05-14 01:32] VITALS: O2SAT 95
[2022-05-14 04:45] LABS: Absolute Lymphocytes (CBC) 0.9 K/uL (0.7-4.9); Hematocrit 30.2 % (36.0-45.0); Lymphocytes % 14.1 % (15.3-44.8); MCV 101.4 fL (80-100); MPV 8.4 fL (7.6-11.3); RBC Red Blood Cell Count 2.98 M/uL (3.86-4.86)
[2022-05-14 04:53] LABS: Potassium 4.7 mmol/L (3.5-5.1)
[2022-05-14] MEDS: SILVER SULFADIAZINE 1% 25 GM TOP SCH (08:06)
[2022-05-14] MEDS: CEFEPIME 1 GM in NA CHLORIDE 0.9% 100 ML IV SCH ×2 (08:06→21:00)
--- NOTE | 2022-05-14 19:12 | P.PN ---
Subjective Date of Service: 05/14/22 Chief Complaint: Left lower extremity cellulitis POD # 1 from incision and drainage of left lower extremity abscess. She reports that her pain is well-controlled. She denies any acute concerns this morning. Review of Systems 10-point ROS is otherwise unremarkable Integumentary: Rash (LLE cellulitis) Physical Examination - Vital Signs Temperature: 97.9 F Blood Pressure: 136/62 Pulse: 75 Respirations: 16 Pulse Ox (%): 98 Assessment And Plan - Plan - Physical Exam General: Alert, In no apparent distress, Oriented x3 HEENT: Atraumatic, Mucous membr. moist/pink, Sclerae nonicteric Neck: JVD not distended Respiratory: Clear to auscultation bilaterally, Normal air movement Cardiovascular: No edema, Regular rate/rhythm, No rubs, No murmurs Capillary refill: <2 Seconds Gastrointestinal: Normal bowel sounds, Soft, Non-distended, No tenderness Musculoskeletal: No clubbing Integumentary: Left lower extremity is covered in surgical dressing # Suspect Left Lower Extremity Purulent Cellulitis # Reported Recent Left Ankle Fracture - S/P 4 days of outpatient cephalexin, without improvement in her symptoms - Evaluation thus far: - Does not currently meet sepsis criteria - Bilateral Doppler ultrasound = "no DVT in either lower extremity." - Left lower extremity x-ray = "no acute bony injuries were demonstrated." - CT left lower extremity (05/11) = "no evidence for acute fracture or dislocation. No evidence for periosteal reaction/or erosive changes. Soft tissue haziness especially bilateral malleoli." - Repeat CT left lower extremity (05/13) = "in the anterolateral left leg from the mid tibia level to the ankle at the muscle subcutaneous fat interface, there is a rim enhancing low-density collection 14 cm CC x 3.3 cm TR x 1.7 cm AP. Cellulitis changes are seen in the surrounding tissues. This collection is most likely an abscess." - Management plan: - General Surgery consulted and spoke with Dr. Katz - recommendations appreciated - S/P I&D on 05/13/2022 - Continue Vancomycin + Cefepime, plan to transition to PO antibiotics tomorrow in anticipation for discharge - Blood cultures obtained - Lactate = 1.3 # Hypertension - Reconcile home medications once verified Rajat Wan M.D.
[2022-05-14] MEDS ORDERED: VANCOMYCIN 1.5 GM in NA CHLORIDE 0.9% 500 ML IVPB SCH (21:00)
[2022-05-15 04:29] LABS: Absolute Lymphocytes (CBC) 1.8 K/uL (0.7-4.9); Hematocrit 30.4 % (36.0-45.0); Lymphocytes % 15.7 % (15.3-44.8); MCV 101.7 fL (80-100); MPV 8.3 fL (7.6-11.3); RBC Red Blood Cell Count 2.99 M/uL (3.86-4.86)
[2022-05-15 04:40] LABS: Potassium 4.4 mmol/L (3.5-5.1)
[2022-05-15] MEDS: CEFEPIME 1 GM in NA CHLORIDE 0.9% 100 ML IV SCH (08:26)
[2022-05-15] MEDS: SILVER SULFADIAZINE 1% 25 GM TOP SCH (08:27)
[2022-05-15 12:17] LABS: Absolute Lymphocytes (CBC) 1.7 K/uL (0.7-4.9); Hematocrit 30.7 % (36.0-45.0); Lymphocytes % 18.2 % (15.3-44.8); MCV 101.5 fL (80-100); RBC Red Blood Cell Count 3.03 M/uL (3.86-4.86)
--- NOTE | 2022-05-15 14:58 | P.DS ---
Admission Date: 05/12/22 Discharge Date: 05/15/22 Disposition: ROUTINE DISCHARGE Discharge Condition: GOOD Reason for Admission: Left lower extremity cellulitis Consultations: 1. General Surgery Procedures: - 05/13/2022 - Incision and Drainage of Left Lower Extremity Abscess Hospital Course: DIAGNOSES: # Left Lower Extremity Purulent Cellulitis with Abscess - failed outpatient therapy # Reported Recent Left Ankle Fracture # Hypertension HOSPITAL COURSE: Ms. Patricia Caldera is a pleasant 76 year old female with a past medical history significant for hypertension who was admitted to the [facility] on 05/12/2022 for left lower extremity cellulitis. She was admitted to the Medicine service. Upon further evaluation, it was noted that she had failed outpatient therapy. A bilateral lower extremity Doppler ultrasound revealed, "no DVT in either lower extremity." A left lower extremity x-ray revealed, "no acute bony injuries were demonstrated." CT left lower extremity revealed, "no evidence for acute fracture or dislocation. No evidence for periosteal reaction/or erosive changes. Soft tissue haziness especially bilateral malleoli." However, her cellulitis worsened. A repeat CT left lower extremity revealed, "in the anterolateral left leg from the mid tibia level to the ankle at the muscle subcutaneous fat interface, there is a rim enhancing low-density collection 14 cm CC x 3.3 cm TR x 1.7 cm AP. Cellulitis changes are seen in the surrounding tissues. This collection is most likely an abscess." General Surgery was consulted and she was evaluated by Dr. Katz. On 05/13/2022, she underwent an incision and drainage of the left lower extremity abscess. She did well postoperatively, with significant improvement in her symptoms. Dr. Katz has cleared her for discharge home with an additional 10 days of cefdinir and doxycycline - he will follow-up with her in clinic. With the assistance of case management, home health services were arranged for wound care. On 05/15/2022, she was seen on rounds and deemed medically stable for discharge. She was discharged with instructions to schedule follow-up appointments with her PCP (Dr. Clark), her Orthopedic Surgeon, and with General Surgery (Dr. Katz). She was provided prescriptions for cefdinir, doxycycline, and silver sulfadiazene. She was given the opportunity to ask questions and reported no further questions. Furthermore, all questions were answered to the best of my ability. A copy of this discharge summary will be sent to the above providers to facilitate continuity of care. Today, I personally spent 25 minutes on her case, of which greater than 50% of the time was spent in patient education, counseling, and coordination of care as described above. - Physical Exam General: Alert, In no apparent distress, Oriented x3 HEENT: Atraumatic, Sclerae nonicteric Neck: JVD not distended Respiratory: Clear to auscultation bilaterally, Normal air movement Cardiovascular: No edema, Regular rate/rhythm, No rubs, No murmurs Capillary refill: <2 Seconds Gastrointestinal: Normal bowel sounds, Soft, Non-distended, No tenderness Musculoskeletal: No clubbing Integumentary: Left lower extremity is covered in surgical dressing Vital Signs/Physical Exam: Temp Pulse Resp BP Pulse Ox 97.0 F 70 16 110/55 L 97 05/15/22 12:00 05/15/22 12:00 05/15/22 12:00 05/15/22 12:00 05/15/22 12:00 Laboratory Data at Discharge: WBC 9.50 K/uL (4.3-10.9) 05/15/22 12:03 Hgb 10.3 g/dL (12.0-15.0) L 05/15/22 12:03 Hct 30.7 % (36.0-45.0) L 05/15/22 12:03 Plt Count 212 K/uL (152-406) 05/15/22 12:03 PT Cancelled 05/11/22 20:43 INR Cancelled 05/11/22 20:43 Sodium 142 mmol/L (136-145) 05/15/22 04:09 Potassium 4.4 mmol/L (3.5-5.1) 05/15/22 04:09 BUN 21 mg/dL (7-18) H 05/15/22 04:09 Creatinine 0.83 mg/dL (0.55-1.02) 05/15/22 04:09 Glucose 129 mg/dL (74-106) H 05/15/22 04:09 Magnesium 2.6 mg/dL (1.6-2.4) H 05/11/22 22:55 Total Bilirubin 0.6 mg/dL (0.2-1.0) 05/11/22 22:55 AST 29 U/L (15-37) 05/11/22 22:55 ALT 25 U/L (13-56) 05/11/22 22:55 Alkaline Phosphatase 128 U/L (45-117) H 05/11/22 22:55 Home Medications: Escitalopram [Lexapro*] 10 mg PO DAILY 05/12/22 Losartan Potassium [Cozaar] 100 mg PO DAILY 05/12/22 Cefdinir [Cefdinir*] 300 mg PO BID 10 Days #20 cap 05/15/22 Doxycycline Hyclate 100 mg PO BID 10 Days #20 tab 05/15/22 Silver Sulfadiazine [Silvadene 1% Cream] 1 appl TOP DAILY #1 tube 05/15/22 New Medications: Cefdinir [Cefdinir*] 300 mg PO BID 10 Days #20 cap Doxycycline Hyclate 100 mg PO BID 10 Days #20 tab Silver Sulfadiazine [Silvadene 1% Cream] 1 appl TOP DAILY #1 tube Physician Discharge Instructions: 1. Please call and schedule a follow-up appointment with your PCP (Dr. Clark) in 3-5 days 2. Please call and schedule a follow-up appointment with General Surgery (Dr. Katz) in 5-7 days 3. Please follow-up with your Orthopedic Doctor for your left ankle as previously scheduled Diet: AHA Activity: Ad humera Followup: Ashkan Katz MD [ACTIVE - CAN ADMIT] - Audrey Hinson MD [Primary Care Provider] - Time spent managing pt's care (in minutes): 25
[2022-05-15 16:08] VITALS: BP 121/65; TEMP 97.3
== END 2022-05-15 16:30 | disposition home health service (06) | DRG 603 ==
LOC: ER 20:16 → ERHOLD 05-12 00:47 → 4TH 05-12 12:01
PROVIDERS: ADMIT Hospitalist; ATTEND Internal Medicine
PROC: 0J9P0ZZ Drainage of Left Lower Leg Subcutaneous Tissue and Fascia, Open Approach (ICD-10-PCS; principal; 2022-05-13 13:00)
DX: L03.116 Cellulitis of left lower limb (principal); L02.416 Cutaneous abscess of left lower limb; L03.126 Acute lymphangitis of left lower limb; I10 Essential (primary) hypertension; K21.9 Gastro-esophageal reflux disease without esophagitis; S82.892A Other fracture of left lower leg, initial encounter for closed fracture; Z60.2 Problems related to living alone; Z90.49 Acquired absence of other specified parts of digestive tract; Z90.710 Acquired absence of both cervix and uterus; Z79.899 Other long term (current) drug therapy; Z20.822 Contact with and (suspected) exposure to COVID-19
CPT/HCPCS: 36415; 71045; 73700; 73701; 76377; 80048; 80076; 80202; 83036; 83605; 83735; 83880; 84484; 85025; 87040; 87070; 87075; 87077; 87186; 87205; 87811; 93970; 96365; 96375; 99284; J0330; J0692; J1100; J2250; J2270; J2405; J2543; J2704; J2930; J3010; J3370; J7030; J7040; J7050; J7120; Q9967

== ENCOUNTER 2024-06-14 13:29 | Emergency (ER) | payer OTHER ==
--- NOTE | 2024-06-14 14:57 | RAD REPORT ---
EXAM: Knee Right 3 View INDICATION: Pain;Swelling COMPARISON: None FINDINGS: No acute fracture. Small knee effusion No significant focal degenerative changes. Other: N/A IMPRESSION: No acute osseous abnormality involving the imaged knee.
--- NOTE | 2024-06-14 15:16 | RAD REPORT ---
Extremity Venous Uni Ltd CLINICAL INDICATION: Female, 78 years old.r/o dvt, bakers cyst;Pain RIGHT TECHNIQUE: Complete duplex sonography of the lower extremity veins was performed of the affected limb . The examination included compression for vein patency, color Doppler imaging and flow augmentation in response to distal compression of the distal external iliac, common femoral, femoral, popliteal, peroneal, tibial and great saphenous veins. [id number]. COMPARISON: No prior exams FINDINGS: Duplex sonography imaging demonstrates all deep veins examined to be fully compressible with spontane ous, phasic and augmented flow in the affected limb. No Cerna's cyst identified. IMPRESSION: No evidence of deep venous thrombosis in the right lower extremity.
--- NOTE | 2024-06-14 16:01 | EDPHYS ---
Physician Documentation [facility] Name: Patricia Caldera Age: 78 yrs Sex: Female : 1945 Arrival Date: 06/14/2024 Time: 13:29 Bed 12 Private MD: AQUILINO Physician Ramakrishna Knight HPI: 06/14 14:08 This 78 yrs old Female presents to ER via Unassigned with complaints of Knee kb Pain. 14:08 Pt is a 78 year old female who presents for right knee pain that started 2 weeks ago. kb States the pain was mild, then she felt a pop in it one week ago and the pain got worse. Denies injury or trauma. Ambulates with steady gait. 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 . Historical: - Allergies: 14:09 No Known Allergies; cm10 - Home Meds: 14:09 losartan oral [Active]; cm10 - PMHx: 14:09 acid reflux; Diverticulitis; Hypertensive disorder; cm10 - PSHx: 14:09 Appendectomy; hysterectomy; cm10 - Immunization history:: Adult Immunizations up to date. - Infectious Disease History:: Denies. - Social history:: Smoking status: Patient denies any tobacco usage or history of. ROS: 14:10 Constitutional: As per HPI kb Exam: 14:10 Constitutional: This is a well developed, well nourished patient who is awake, alert, kb and in no acute distress. Head/Face: Normocephalic, atraumatic. ENT: Moist Mucous membranes Cardiovascular: Regular rate Respiratory: Respirations even and unlabored. No increased work of breathing. Talking in full sentences Skin: Warm, dry with normal turgor. Normal color. Neuro: Awake and alert, GCS 15, oriented to person, place, time, and situation. 14:10 Musculoskeletal/extremity: Extremities: grossly normal except: noted in the right knee: pain, swelling, tenderness, ROM: limited active range of motion due to pain, Circulation is intact in all extremities. Sensation intact. Weight bearing: able to fully bear weight, Vital Signs: 14:08 BP 119 / 60; Pulse 79; Resp 15; Temp 97.5(TE); Pulse Ox 97% on R/A; Weight 68.04 kg; cm10 Height 5 ft. 2 in. ; Pain 10; 14:08 Body Mass Index 27.44 (68.04 kg, 157.48 cm) cm10 14:08 Pain Scale: Adult cm10 MDM: 13:33 Medical Screening Exam initiated kb 14:11 Differential diagnosis: fracture, sprain, bakers cyst, dvt. Data reviewed: vital signs, kb nurses notes. 16:00 Counseling: I had a detailed discussion with the patient and/or guardian regarding the kb historical points, exam findings, and any diagnostic results supporting the discharge/admit diagnosis, radiology results, the need for outpatient follow up, a orthopedic surgeon, to return to the emergency department if symptoms worsen or persist or if there are any questions or concerns that arise at home. 06/14 14:10 Order name: Knee Right 3 View XRAY; Complete Time: 14:58 kb 06/14 14:10 Order name: US Extremity Venous Unilateral Ltd; Complete Time: 15:17 kb 06/14 16:01 Order name: Jerald Wrap; Complete Time: 16:29 kb Administered Medications: 16:29 Drug: HYDROcodone-acetaminophen PO 5 mg-325 mg 1 tabs PO once Route: PO; jb4 16:29 Follow up: Response: Medication administered at discharge. jb4 16:29 Drug: Ibuprofen PO 400 mg PO once Route: PO; jb4 16:29 Follow up: Response: Medication administered at discharge. jb4 Disposition Summary: 06/14/24 16:00 Discharge Ordered Notes: Location: Home kb Condition: Stable kb Diagnosis - Pain in right knee kb Followup: kb - With: Emergency Department - When: As needed - Reason: Worsening of condition Followup: kb - With: Private Physician - When: 2 - 3 days - Reason: Recheck today's complaints, Continuance of care, Re-evaluation by your physician Discharge Instructions: - Discharge Summary Sheet kb - Musculoskeletal Pain kb - Acute Knee Pain, Adult, [id number] kb Forms: - Medication Reconciliation Form kb - Antibiotic Education kb - Prescription Opioid Use kb - Patient Portal Instructions kb - Leadership Thank You Letter kb Prescriptions: - Mobic 7.5 mg Oral Tablet - take 1 tablet ORAL route once daily take with food; 20 tablet; Refills: 0, kb Product Selection Permitted Signatures: Dispatcher [employer] Mildred Tucker, MANAGER MASSAGE DEPARTMENT-C KJ-Sarbjit Dorantes, RN RN jb4 Brit Bautista, RN RN cm10
--- NOTE | 2024-06-14 16:01 | ER ---
Nurse's Notes [facility] Name: Patricia Caldera Age: 78 yrs Sex: Female : 1945 Arrival Date: 06/14/2024 Time: 13:29 Bed 12 Private MD: Diagnosis: Pain in right knee Presentation: 06/14 14:08 Chief complaint: Patient states: Right knee pain onset 1 week ago. 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 Coronavirus screen: Client denies travel out of the [place] in the last 14 days. Ebola Screen: Patient denies travel to an Ebola-affected area in the 21 days before illness onset. Initial Sepsis Screen: Does the patient meet any 2 criteria? No. Patient's initial sepsis screen is negative. Does the patient have a suspected source of infection? No. Patient's initial sepsis screen is negative. Risk Assessment: Do you want to hurt yourself or someone else? Patient reports no desire to harm self or others. Onset of symptoms was June 14, 2024. 14:08 Method Of Arrival: Ambulatory cm10 14:08 Acuity: JONATHAN 4 cm10 Triage Assessment: 14:10 General: Appears in no apparent distress. uncomfortable, Behavior is calm, cooperative. cm10 Pain: Complains of pain in right knee Pain currently is 10 out of 10 on a pain scale. Neuro: No deficits noted. Level of Consciousness is awake, alert, obeys commands, Oriented to person, place, time, situation, Appropriate for age. Respiratory: No deficits noted. Airway is patent Respiratory effort is even, unlabored, Respiratory pattern is regular, symmetrical. Historical: - Allergies: 14:09 No Known Allergies; cm10 - Home Meds: 14:09 losartan oral [Active]; cm10 - PMHx: 14:09 acid reflux; Diverticulitis; Hypertensive disorder; cm10 - PSHx: 14:09 Appendectomy; hysterectomy; cm10 - Immunization history:: Adult Immunizations up to date. - Infectious Disease History:: Denies. - Social history:: Smoking status: Patient denies any tobacco usage or history of. Screenin:30 [facility] ED Fall Risk Assessment (Adult) History of falling in the last 3 months, jb4 including since admission No falls in past 3 months (0 pts) Confusion or Disorientation No (0 pts) Intoxicated or Sedated No (0 pts) Impaired Gait No (0 pts) Mobility Assist Device Used No (0 pt) Altered Elimination No (0 pt) Score/Fall Risk Level 0 - 2 = Low Risk Oriented to surroundings, Maintained a safe environment. Abuse screen: Denies threats or abuse. Nutritional screening: No deficits noted. Tuberculosis screening: No symptoms or risk factors identified. Assessment: 16:30 Reassessment: Patient appears in no apparent distress at this time. Patient and/or jb4 family updated on plan of care and expected duration. Pain level reassessed. Patient is alert, oriented x 3, equal unlabored respirations, skin warm/dry/pink. Vital Signs: 14:08 BP 119 / 60; Pulse 79; Resp 15; Temp 97.5(TE); Pulse Ox 97% on R/A; Weight 68.04 kg; cm10 Height 5 ft. 2 in. ; Pain 10/10; 14:08 Body Mass Index 27.44 (68.04 kg, 157.48 cm) cm10 14:08 Pain Scale: Adult cm10 ED Course: 13:32 Patient arrived in ED. mr 13:33 Mildred Lay, ORI is PHCP. kb 13:33 Ramakrishna Knight MD is Attending Physician. kb 14:09 Triage completed. cm10 14:10 Arm band placed on right wrist. Patient placed in waiting room. cm10 14:38 Knee Right 3 View XRAY In Process Unspecified. EDMS 15:11 US Extremity Venous Unilateral Ltd In Process Unspecified. EDMS 16:30 No provider procedures requiring assistance completed. Patient did not have IV access jb4 during this emergency room visit. Administered Medications: 16:29 Drug: HYDROcodone-acetaminophen PO 5 mg-325 mg 1 tabs PO once Route: PO; jb4 16:29 Follow up: Response: Medication administered at discharge. jb4 16:29 Drug: Ibuprofen PO 400 mg PO once Route: PO; jb4 16:29 Follow up: Response: Medication administered at discharge. jb4 Medication: 16:30 VIS not applicable for this client. jb4 Outcome: 16:00 Discharge ordered by . kb 16:30 Discharged to home ambulatory, jb4 16:30 Condition: stable 16:30 Discharge instructions given to patient, Instructed on discharge instructions, follow up and referral plans. no drinking with medication, medication usage, Demonstrated understanding of instructions, follow-up care, medications, Prescriptions given X 1, 16:30 Patient left the ED. jb4 Signatures: Dispatcher [employer] EDMS Mildred Lay, KJ-Gaby UNDERWOOD-Naz Abdi, Reg Reg mr PatelSarbjit, RN RN jb4 Brit Bautista RN RN cm10
[2024-06-14] MEDS ORDERED: IBUPROFEN 400 MG TAB ONE (16:14)
[2024-06-14] MEDS ORDERED: HYDROCODONE/APAP 5/325 MG TAB ONE (16:14)
[2024-06-14 16:44] VITALS: BP 119/60; TEMP 97.5; O2SAT 97
== END 2024-06-14 16:30 | disposition home or self-care (01) ==
LOC: ER 13:29
DX: M25.561 Pain in right knee (principal)
CPT/HCPCS: 93971